=== PATIENT | female | born 1940 | race Caucasian/White ===

== ENCOUNTER → 2016-09-15 | Outpatient (CLI) | payer MEDICARE, OTHER ==
--- NOTE | 2016-09-16 16:25 | MAM ---
History: Well woman exam. Date of exam: 09/15/2016 Services provided: Bilateral full field digital screening mammography. CAD, the images were reviewed with R2 computer aided detection. FINDINGS: Glandular tissue is scattered glandular contour. No prior study is currently available for comparison. No dominant mass, architectural distortion or clustered microcalcification. IMPRESSION: Benign exam Recommendation: Routine annual mammography BIRAD CATEGORY: 2 BENIGN Electronically signed by: Anyi Barr MD 09/16/2016 4:24 PM CDT
== END | disposition home or self-care (01) ==
LOC: MAMMO 09:33
PROVIDERS: ATTEND Family Medicine
DX: Z12.31 Encounter for screening mammogram for malignant neoplasm of breast (principal)

== ENCOUNTER → 2016-09-20 | Outpatient (CLI) | payer MEDICARE, OTHER | END | disposition home or self-care (01) | LOC: GMAJ 14:29 | PROVIDERS: ATTEND Family Medicine | DX: E03.9 Hypothyroidism, unspecified (principal) ==

== ENCOUNTER → 2017-03-06 | Outpatient (CLI) | payer MEDICARE, OTHER | END | disposition home or self-care (01) | LOC: GMAJ 14:49 | PROVIDERS: ATTEND Family Medicine | DX: E03.9 Hypothyroidism, unspecified (principal) ==

== ENCOUNTER → 2017-09-04 | Outpatient (CLI) | payer OTHER | LOC: GMAJ 11:19 | PROVIDERS: ATTEND Family Medicine | DX: E03.9 Hypothyroidism, unspecified (principal) ==

== ENCOUNTER → 2018-01-12 | Outpatient (CLI) | payer OTHER | LOC: GMAJ 12:34 | PROVIDERS: ATTEND Family Medicine | DX: E03.9 Hypothyroidism, unspecified (principal) ==

== ENCOUNTER → 2018-02-14 | Outpatient (CLI) | payer OTHER | LOC: GMAJ 13:13 | PROVIDERS: ATTEND Family Medicine | DX: E03.9 Hypothyroidism, unspecified (principal) ==

== ENCOUNTER → 2018-05-23 | Outpatient (CLI) | payer OTHER | LOC: GMAJ 11:13 | PROVIDERS: ATTEND Family Medicine | DX: E03.9 Hypothyroidism, unspecified (principal) ==

== ENCOUNTER → 2018-05-24 | Outpatient (CLI) | payer OTHER ==
--- NOTE | 2018-05-24 17:34 | US ---
EXAM DESCRIPTION: Venous,Lower Extremity LT CLINICAL HISTORY: LOCALIZED EDEMA COMPARISON: None Available. TECHNIQUE: Left lower extremity venous duplex FINDINGS: Doppler evaluation of the left lower extremity deep veins was performed. Normal color flow is seen in the common femoral, superficial femoral, profunda femoral and greater saphenous veins. Normal flow is seen in the popliteal vein and veins below the knee in the calf. Normal venous compressibility and flow augmentation. IMPRESSION: Negative for evidence of deep venous thrombosis on left lower extremity venous Doppler sonogram. Electronically signed by: Abebe Nazario MD 05/24/2018 5:33 PM [employer]
== END ==
LOC: US 15:03
PROVIDERS: ATTEND Family Medicine
DX: R60.0 Localized edema (principal)

== ENCOUNTER 2018-10-11 15:14 | Observation (INO) | payer OTHER ==
[2018-10-12 09:54] VITALS: BP 157/67; TEMP 97.8
[2018-10-12 10:02] VITALS: O2SAT 94
== END 2018-10-12 10:40 | disposition home or self-care (01) ==
LOC: MS 15:14 → INTOOBSV 15:14
PROVIDERS: ADMIT Nurse Practitioner Family; ATTEND Nurse Practitioner
DX: L03.032 Cellulitis of left toe (principal); E11.65 Type 2 diabetes mellitus with hyperglycemia; E03.9 Hypothyroidism, unspecified; F17.210 Nicotine dependence, cigarettes, uncomplicated; I25.10 Atherosclerotic heart disease of native coronary artery without angina pectoris; M85.80 Other specified disorders of bone density and structure, unspecified site; I10 Essential (primary) hypertension; E78.2 Mixed hyperlipidemia; I25.2 Old myocardial infarction; Z79.4 Long term (current) use of insulin; Z79.82 Long term (current) use of aspirin; Z79.890 Hormone replacement therapy; Z79.899 Other long term (current) drug therapy; Z86.010 Personal history of colon polyps; Z95.5 Presence of coronary angioplasty implant and graft; Z86.73 Personal history of transient ischemic attack (TIA), and cerebral infarction without residual deficits

== ENCOUNTER → 2018-10-17 | Outpatient (CLI) | payer OTHER ==
--- NOTE | 2018-10-18 15:33 | MRI ---
Study: MRI of the Left Foot. Indication: Cellulitis of toe Technique: Multiplanar, multi sequence MRI of the left foot was obtained without intravenous contrast. Comparison: Radiographs October 04, 2018 Findings: Unfortunately, examination is moderate to severely motion degraded and essentially nondiagnostic. There is extensive cellulitis throughout the foot. There is questionable elevated STIR signal within the proximal metadiaphysis of the fifth proximal phalanx. This could indicate osteomyelitis but is nonspecific. 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 Impression: Moderate to severely motion degraded examination, essentially nondiagnostic. Repeat examination is recommended when the patient can tolerate. Extensive cellulitis throughout the foot with questionable elevated STIR signal within the proximal metadiaphysis of the fifth proximal phalanx. Conceivably this could reflect osteomyelitis but is nonspecific. Electronically signed by: Sean Sanchez MD 10/18/2018 3:31 PM CDT
== END ==
LOC: MRI 13:49
PROVIDERS: ATTEND Family Medicine
DX: L03.032 Cellulitis of left toe (principal)

== ENCOUNTER 2018-10-19 13:37 | Inpatient (IN) | payer OTHER ==
--- NOTE | 2018-10-19 13:39 | HP ---
SUPERVISING PHYSICIAN: Dilip Staples MD CHIEF COMPLAINT: Left foot pain. HISTORY OF PRESENT ILLNESS: This is a 73 year-old female patient who was seen by her primary care physician, Dr. Guadalupe, today. She was actually in this hospital last week for IV antibiotics due to this foot pain. She wanted to go to a wedding so she talked the hospitalist into releasing her so she could leave. Up through discharge, her foot was hurting so much that she was unable to go to the wedding and today saw her primary care physician. Her left fifth toe was black, her whole foot had 4+ edema. An MRI had been done the previous day and was nondiagnostic due to movement but other than the cellulitis, it was consistent with osteomyelitis. Dr. Guadalupe told her she would need to be put in the hospital for IV therapy due to osteomyelitis and we would get a better MRI once her pain was controlled. She was sent to the hospital as a direct admission. Her initial vital signs showed a temperature of 98.8, heart rate of 80, blood pressure 183/71, respiratory rate 20, 02 saturation 96% on room air. Lab was done. Electrolytes were within normal limits. Her blood sugar ran between 179 and 242. Her liver function tests were unremarkable. CBC showed a WBC of 7.8, hemoglobin 13.2 and hematocrit 39.1. There was no shift on her differential. Her urinalysis was unremarkable. Blood cultures were drawn and patient was placed on primary fluids. She also was started on vancomycin as well as Rocephin. PAST MEDICAL HISTORY: 1. Diabetes mellitus type 2. . 2. Hypothyroidism. 3. Coronary artery disease. 4. Hyperlipidemia. 5. Hypertension. 6. Myocardial infarction x1 in 2007. 7. Colonic polyps biopsy in 2009. 8. Osteopenia. PAST SURGICAL HISTORY: 1. Appendectomy. 2. Hysterectomy.. 3. Bladder suspension. 4. Bilateral cataract removal. 5. Hernia repair in 1994, inguinal. 6. Right total knee arthroplasty in 2015. 7. PTCA in 2007 with coronary stent placement. OUTPATIENT MEDICATIONS: As per the EMR and awaiting verification. ALLERGIES: NO KNOWN DRUG ALLERGIES. FAMILY HISTORY: Positive for diabetes and Alzheimer's disease. SOCIAL HISTORY: She lives in [place]. She has four children. She is a current smoker. She smokes one-half pack per day. She drinks alcohol on a social basis only and only drinks it very infrequently. She denies any illicit drug use. REVIEW OF SYSTEMS: Negative except for pain and swelling in that left lower leg. PHYSICAL EXAMINATION: VITAL SIGNS: Temperature is 98.4, heart rate 69, blood pressure 149/68, respiratory rate 16, 02 saturation 92% on room air. GENERAL: The patient is a 78 year-old female patient lying in her hospital bed. She is in no acute distress. HEENT: Normocephalic and atraumatic. Pupils are equal and reactive. Oropharynx is clear. NECK: Supple without mass. CHEST: Essentially clear to auscultation bilaterally. There is equal rise and fall of the chest with inspiration and expiration. CARDIOVASCULAR: Regular rate and rhythm. ABDOMEN: Soft, nondistended, non-tender. Bowel sounds positive. EXTREMITIES: Her left lower leg is elevated on a pillow. It has +3 edema, her fifth toe on that left foot is black. She does have +1 pedal pulse on the left side, +2 pedal pulse on the right side. There was no drainage or fluctuance noted. NEUROLOGIC: She is awake, alert, and oriented x3. Cranial nerves II through XII are grossly intact. SKIN: Warm and dry. Labs and films are as per the history of present illness. ASSESSMENT: 1. Cellulitis of the left fifth toe with concerns for osteomyelitis. MRI was nondiagnostic due to movement but test was consistent with osteomyelitis. 2. Coronary artery disease. 3. Diabetes mellitus type 2. 4. Hypothyroidism . 5. History of myocardial infarction. 6. Hyperlipidemia. PLAN: The patient has been admitted to the hospital. Her home medications will be resumed as soon as they are verified. I have ordered routine lab for in the morning. She has gotten some primary IV fluids and I have started her on vancomycin per pharmacy protocol as well as Rocephin. She will have a PPI for ulcer prophylaxis and Lovenox for DVT prophylaxis. We may need to do a repeat MRI at some point on that foot and will most likely need to touch base with Dr. Griffith, Infectious Disease physician in [place] next week. Most likely will need to do one week of IV antibiotic therapy and then she possibly could be a Swing Bed candidate. Will also need to get a PIC line if possible as this will probably have a 6-week antibiotic regimen. Otherwise, will monitor cultures and follow closely and treat as needed. [facility][id number] [facility]
[2018-10-19] MEDS: MORPHINE SULFATE INJ 10 MG/ML VIAL IV PRN ×2 (13:59→19:33)
[2018-10-19] MEDS ORDERED: ACETAMINOPHEN 325 MG TAB PO PRN (14:39)
[2018-10-19] MEDS ORDERED: SODIUM CHLORIDE 0.9% (FLUSH) 10 ML SYG IV PRN (14:39)
[2018-10-19] MEDS ORDERED: GLUCAGON INJ 1 MG VIAL SUBCU PRN (14:44)
[2018-10-19] MEDS ORDERED: DEXTROSE 50% 25 GM/50 ML SYG IV PRN (14:44)
[2018-10-19] MEDS ORDERED: cefTRIAXone SODIUM 1 GM VIAL ONE (14:48)
[2018-10-19] MEDS ORDERED: SODIUM CHL 0.9% 50ML MIN-BAG+ 50 ML IVPB ONE (14:49)
[2018-10-19] MEDS: cefTRIAXone SODIUM 1 GM in SODIUM CHL 0.9% 50ML MIN-BAG+ 50 ML IVPB SCH (14:52)
[2018-10-19] MEDS: IV SET AND CAP CHANGE INJ INJ SCH (14:52)
[2018-10-19] MEDS ORDERED: VANCOMYCIN PER PHARMACY INJ SCH (15:00)
[2018-10-19] MEDS ORDERED: VANCOMYCIN HCL INJ 1,000 MG, VANCOMYCIN HCL INJ 250 MG in SODIUM CHLORIDE 0.9% 250ML 25... IVPB ONE (16:00)
[2018-10-19] MEDS ORDERED: VANCOMYCIN HCL INJ 500 MG VIAL ONE (16:32)
[2018-10-19] MEDS ORDERED: VANCOMYCIN HCL INJ 1,000 MG VIAL IVPB ONE (16:33)
[2018-10-19] MEDS ORDERED: SODIUM CHLORIDE 0.9% 250ML 250 ML ONE (16:33)
[2018-10-19] MEDS: INSULIN LISPRO 100 UNITS/ML PEN SUBCU SCH ×2 (16:40→21:38)
[2018-10-19] MEDS ORDERED: PANTOPRAZOLE SODIUM TAB 40 MG PO ONE (19:43)
[2018-10-19] MEDS: ENOXAPARIN SODIUM 40 MG/0.4 ML SYG SUBCU SCH (20:40)
[2018-10-19] MEDS: SODIUM CHLORIDE 0.9% (FLUSH) 10 ML SYG IV SCH (20:41)
[2018-10-20] MEDS: PANTOPRAZOLE SODIUM TAB 40 MG PO SCH (06:20)
[2018-10-20] MEDS ORDERED: PANTOPRAZOLE SODIUM IV 40 MG VIAL IV SCH (06:30)
[2018-10-20] MEDS: INSULIN LISPRO 100 UNITS/ML PEN SUBCU SCH ×4 (07:36→21:31)
[2018-10-20] MEDS: SODIUM CHLORIDE 0.9% (FLUSH) 10 ML SYG IV SCH ×2 (09:57→21:32)
[2018-10-20] MEDS: MORPHINE SULFATE INJ 10 MG/ML VIAL IV PRN ×4 (10:39→23:21)
[2018-10-20] MEDS ORDERED: SODIUM CHL 0.9% 50ML MIN-BAG+ 50 ML IVPB ONE (15:04)
[2018-10-20] MEDS ORDERED: cefTRIAXone SODIUM 1 GM VIAL ONE (15:04)
[2018-10-20] MEDS: cefTRIAXone SODIUM 1 GM in SODIUM CHL 0.9% 50ML MIN-BAG+ 50 ML IVPB SCH (15:09)
[2018-10-20] MEDS ORDERED: SODIUM CHLORIDE 0.9% 250ML 250 ML ONE ×2 (16:32→16:35)
[2018-10-20] MEDS ORDERED: VANCOMYCIN HCL INJ 1,000 MG VIAL IVPB ONE (16:32)
[2018-10-20] MEDS: VANCOMYCIN HCL INJ 1,000 MG in SODIUM CHLORIDE 0.9% 250ML 250 ML IVPB SCH (16:34)
--- NOTE | 2018-10-20 18:39 | PN ---
DATE: 10/20/18 SUPERVISING PHYSICIAN: Dilip Staples M.D. SUBJECTIVE: The patient is sitting in bed. Her daughter is at the bedside. No complaints of nausea, vomiting, diarrhea or chest pain. The patient said she felt she did well with her ambulation and the walker when Physical Therapy was in her room. She also feels that her pain is fairly well controlled. OBJECTIVE: VITAL SIGNS: Temperature 98.6, heart rate 64, blood pressure 172/69, respiratory rate 20, O2 sat 92%. RESPIRATORY: Essentially clear to auscultation bilaterally. CARDIAC: Regular rate and rhythm. GASTROINTESTINAL: Abdomen is soft, nondistended, non-tender. Bowel sounds ear positive. EXTREMITIES: Her left fifth toe is black. There is no drainage or edema. Her left foot has +1 to +2 pedal edema. Her pulse is palpable at +1. Right pedal pulse is palpable at +2. NEUROLOGIC: She is awake, alert and oriented times three. LABORATORY: WBCs are 6.4, hemoglobin 12.6, hematocrit 38.3. Electrolytes are basically within normal limits. Blood sugars have run between 105 and 242. Preliminary blood cultures show no growth after 24 hours. All other labs and films have been reviewed via the EMR. ASSESSMENT: 1. Cellulitis of the left fifth toe with concerns for osteomyelitis. MRI was nondiagnostic due to movement but test was consistent with osteomyelitis. 2. Coronary artery disease. 3. Diabetes mellitus type 2. 4. Hypothyroidism . 5. History of myocardial infarction. 6. Hyperlipidemia. PLAN: We will continue present supportive care. Nursing staff is having a difficult time verifying her home medications, but they will be restarted as soon as they are verified. I will hold on her lab for in the morning. Will continue with her present antibiotics. Most likely will need to talk to Dr. Griffith on Monday to find the recommended plan of care and antibiotic coverage as well as length of treatment. She will continue to work with Physical Therapy. Anticipate 1 week in hospital getting a PICC line on Monday and maybe another week of Swing Bed, but again will see what Dr. Griffith recommends. Will continue to monitor closely and follow as needed. #[id number] [facility]
[2018-10-20] MEDS ORDERED: LEVOTHYROXINE SODIUM 0.075 MG TAB ONE (20:37)
[2018-10-20] MEDS ORDERED: LEVOTHYROXINE SODIUM 0.1 MG TAB ONE (20:37)
[2018-10-20] MEDS ORDERED: LISINOPRIL 10 MG TAB PO ONE (21:00)
[2018-10-20] MEDS ORDERED: NON-FORMULARY MEDICATION 1 EA MIS (Rosuvastatin Calcium [Crestor] 20 MG) PO SCH (21:00)
[2018-10-20] MEDS: ENOXAPARIN SODIUM 40 MG/0.4 ML SYG SUBCU SCH (21:31)
[2018-10-21] MEDS: PANTOPRAZOLE SODIUM TAB 40 MG PO SCH (06:15)
[2018-10-21] MEDS ORDERED: LEVOTHYROXINE SODIUM 0.175 MG PO SCH (06:30)
[2018-10-21] MEDS: INSULIN LISPRO 100 UNITS/ML PEN SUBCU SCH ×4 (08:07→21:38)
[2018-10-21] MEDS: METOPROLOL SUCCINATE XL 25 MG TAB PO SCH (09:20)
[2018-10-21] MEDS: ASPIRIN (CHEWABLE) 81 MG TAB PO SCH (09:20)
[2018-10-21] MEDS: SODIUM CHLORIDE 0.9% (FLUSH) 10 ML SYG IV SCH ×2 (09:21→21:39)
[2018-10-21] MEDS: MORPHINE SULFATE INJ 10 MG/ML VIAL IV PRN ×3 (09:21→19:17)
[2018-10-21] MEDS: NICOTINE PATCH 14 MG TD SCH (10:25)
[2018-10-21] MEDS ORDERED: cefTRIAXone SODIUM 1 GM VIAL ONE (14:48)
[2018-10-21] MEDS ORDERED: SODIUM CHL 0.9% 50ML MIN-BAG+ 50 ML IVPB ONE (14:48)
[2018-10-21] MEDS: cefTRIAXone SODIUM 1 GM in SODIUM CHL 0.9% 50ML MIN-BAG+ 50 ML IVPB SCH (14:52)
[2018-10-21] MEDS ORDERED: VANCOMYCIN HCL INJ 1,000 MG VIAL IVPB ONE (15:39)
[2018-10-21] MEDS ORDERED: SODIUM CHLORIDE 0.9% 250ML 250 ML ONE (15:39)
[2018-10-21] MEDS: VANCOMYCIN HCL INJ 1,000 MG in SODIUM CHLORIDE 0.9% 250ML 250 ML IVPB SCH (15:45)
[2018-10-21] MEDS ORDERED: LEVOTHYROXINE SODIUM 0.075 MG TAB ONE (20:45)
[2018-10-21] MEDS ORDERED: LEVOTHYROXINE SODIUM 0.1 MG TAB ONE (20:46)
[2018-10-21] MEDS: ATORVASTATIN 20 MG TAB PO SCH (21:38)
[2018-10-21] MEDS: ENOXAPARIN SODIUM 40 MG/0.4 ML SYG SUBCU SCH (21:38)
--- NOTE | 2018-10-21 22:21 | PN ---
DATE: 10/21/18 SUPERVISING PHYSICIAN: Dilip Staples M.D. SUBJECTIVE: The patient is sitting up in her bed. She has no complaints overnight. Her son is at the bedside. We again discussed her antibiotic regimen over the next week or so and that she would be getting a PICC this week if possible. Her pain is fairly well control in that left foot. OBJECTIVE: VITAL SIGNS: Temperature 98.4, heart rate 66, blood pressure 154/64, respiratory rate 15, O2 sat 97% on room air. RESPIRATORY: Essentially clear to auscultation bilaterally. CARDIAC: Regular rate and rhythm. GASTROINTESTINAL: Abdomen is soft, nondistended, non-tender. Bowel sounds are positive. EXTREMITIES: Her left fifth toe is only ecchymotic on the plantar portion of that toe as well as the very tip. She also has no edema to her feet. Bilateral pedal pulses are +2. NEUROLOGIC: She is awake, alert and oriented times three. LABORATORY: Blood sugars have run between 105 and 169. Preliminary blood cultures show no growth after 48 hours. All other labs and films have been reviewed via the EMR. ASSESSMENT: 1. Cellulitis of the left fifth toe with concerns for osteomyelitis. MRI was nondiagnostic due to movement but test was consistent with osteomyelitis. 2. Coronary artery disease. 3. Diabetes mellitus type 2. 4. Hypothyroidism . 5. History of myocardial infarction. 6. Hyperlipidemia. PLAN: We will continue present supportive care. Her lab was stable so I will not repeat any at this time. Will continue her antibiotics as ordered. We may need to touch base with Dr. Griffith this next week about her antibiotic coverage as well as her length of stay. Will need to get a PICC line this week. Dr. Guadalupe, her PCP, has recommended that she stay 1 week in Acute Care and 1 week in Swing Bed, and followup with Dr. Griffith. We also need to find out if we need to repeat the MRI since it was nondiagnostic due to movement and if we should repeat it, when. She has occasionally gotten agitated and I have given her a small dose of Ativan as needed. Will continue to monitor closely and follow as needed. #[id number] [facility]
[2018-10-22] MEDS: LEVOTHYROXINE SODIUM 0.1 MG, LEVOTHYROXINE SODIUM 0.075 MG PO SCH ×2 (06:10)
[2018-10-22] MEDS: PANTOPRAZOLE SODIUM TAB 40 MG PO SCH (06:10)
[2018-10-22] MEDS: INSULIN LISPRO 100 UNITS/ML PEN SUBCU SCH ×4 (07:20→21:19)
[2018-10-22] MEDS: ASPIRIN (CHEWABLE) 81 MG TAB PO SCH (08:10)
[2018-10-22] MEDS: SODIUM CHLORIDE 0.9% (FLUSH) 10 ML SYG IV SCH ×2 (08:10→21:22)
[2018-10-22] MEDS: METOPROLOL SUCCINATE XL 25 MG TAB PO SCH (08:10)
[2018-10-22] MEDS: NICOTINE PATCH 14 MG TD SCH (08:11)
[2018-10-22] MEDS: MORPHINE SULFATE INJ 10 MG/ML VIAL IV PRN (08:20)
[2018-10-22] MEDS: DOCUSATE SODIUM 100 MG CAP PO SCH ×2 (11:35→21:18)
--- NOTE | 2018-10-22 12:03 | CONS ---
DATE OF CONSULTATION: 10/22/18 HISTORY OF PRESENT ILLNESS: The patient is a 73-year-old female who was admitted with left foot pain, swelling and erythema along with a small ulceration in the area of necrosis of the left fifth toe. An MRI performed several days ago was of poor quality due to patient motion, but believed to be consistent with osteomyelitis. I have been asked to make recommendations for further treatment. She is currently afebrile with a normal white count on IV antibiotic therapy. PAST MEDICAL HISTORY: 1. Diabetes. 2. Hypothyroidism. 3. Coronary artery disease. 4. Hyperlipidemia. 5. Hypertension. 6. Myocardial infarction. 7. Colonic polyps. 8. Osteopenia. 9. Chronic tobacco abuse. PAST SURGICAL HISTORY: 1. Appendectomy. 2. Hysterectomy. 3. Bladder suspension. 4. Cataract. 5. Inguinal hernia repair. 6. Total knee. 7. PTCA with stent. MEDICATIONS: As noted on the electronic record. ALLERGIES: NO KNOWN DRUG ALLERGIES. FAMILY HISTORY: Positive for diabetes and Alzheimer's. SOCIAL HISTORY: She lives in [place] with one of her sons. She has smoked since she was a teenager and continues to smoke. She drinks on minimal occasional basis. REVIEW OF SYSTEMS: Unremarkable other than symptoms associated with her left leg. PHYSICAL EXAMINATION: GENERAL: The patient is awake, alert, cooperative, in no acute distress. VITAL SIGNS: The patient is currently afebrile, normotensive. HEENT: Sclerae nonicteric. Mucous membranes moist. NECK: Without adenopathy. BACK: Without CVA tenderness. CHEST: Equal breath sounds bilaterally. HEART: Regular rhythm. ABDOMEN: Benign. EXTREMITIES: The left lower extremity is elevated and has minimal edema. The left fifth toe shows an area of necrosis. Pedal pulses are not palpated. There is moderate tenderness of the foot, toe and calf on the left. LABORATORY: White count 6.4 two days ago and a normal differential. Hemoglobin 12.6. Chemistries were unremarkable with creatinine 0.99. Blood sugars have been running between 170 and 120 for the last 36 hours. C-reactive protein was 0.7. ASSESSMENT: 1. Diabetes. 2. Cellulitis with possible osteomyelitis of the left foot and left fifth toe. 3. More than likely peripheral vascular occlusive disease. 4. Chronic tobacco abuse. 5. History of coronary artery disease. PLAN: If in fact the patient has not had arterial Doppler studies, would order those first and allow the patient to make a decision about whether she wants long-term antibiotic therapy or aggressive surgical management at which time a probable repeat MRI would be required to delineate the extent of the osteomyelitis. Until that time, we will continue Rocephin and vancomycin as ordered along with elevation of the foot. #[id number] [facility]
--- NOTE | 2018-10-22 13:10 | PN ---
SUPERVISING PHYSICIAN: Spring Cazares MD DATE: 10/22/18 SUBJECTIVE: The patient states she does not currently have any discomfort in her foot after receiving some pain medications this morning. Prior to that, she was having some pain, but the swelling is down quite a bit from what it was. OBJECTIVE: VITAL SIGNS: Blood pressure 173/71. Heart rate 52. Respiratory rate 16. Temperature 99.2. Oxygen saturation 95%. GENERAL: Ms. Ovalles is a 78-year-old female in no active distress currently. NEUROLOGIC: Alert and oriented. LUNGS: Clear to auscultation bilaterally. CARDIOVASCULAR: Regular rate and rhythm. Normal S1, S2. ABDOMEN: Soft. Positive bowel sounds. EXTREMITIES: The left lower extremity is showing no acute changes from assessment yesterday which was necrotic portion on the plantar aspect of the left fifth toe. Erythema and edema is improved of the whole foot area. Pulses 2+. LABORATORY: White count 6.4, hemoglobin 12.6, hematocrit 38.3, platelet count 175. ASSESSMENT: 1. Cellulitis of the left foot with concerns for osteomyelitis of the left fifth toe. 2. Coronary artery disease. 3. Diabetes mellitus, type 2. 4. Hypothyroidism. 5. History of myocardial infarction. 6. Hyperlipidemia. PLAN: We will continue antibiotic therapy. I am adding some Colace to her medication regimen due to the fact that she is taking narcotic pain medications. She seems to be clinically improving although not quite where she needs to be. We are going to continue her IV antibiotics for a week. She will probably need a followup with Dr. Griffith at some point. Additionally, Marycruz Ignacio, the nurse practitioner from yesterday, has consulted Dr. Schuler regarding the patient's possible need for further intervention. #[id number] [facility]
[2018-10-22] MEDS: HYDROcodone 5MG/APAP 325MG 1 EA TAB PO PRN (14:54)
--- NOTE | 2018-10-22 15:36 | US ---
Exam: Bilateral lower extremity arterial Doppler sonogram CLINICAL HISTORY: Osteomyelitis, peripheral vascular disease of the lower extremities TECHNIQUE: Doppler sonographic evaluation of the bilateral lower extremities was performed. FINDINGS: Right Submitted sonographic images reveal extensive arteriosclerotic plaque in the right lower extremity arteries with high velocity flow in the common femoral artery consistent with stenosis of moderate degree. Lack of flow in the midportion of the superficial femoral arteries consistent with occlusion, most likely chronic since there is reconstituted flow distally. Correlate with conventional angiographic findings if indicated. Monophasic flow suggests proximal disease in the aorta or iliac arteries. The following peak systolic flow flow velocity measurements were obtained: Common femoral artery velocity equals 168 centimeters per second , monophasic. Superficial femoral artery velocity equals 9.3 cm/s proximally (monophasic) with no flow seen in the mid superficial femoral artery consistent with occlusion. Collateral vessels must reconstitute since there is flow in the distal SFA 15.5 cm per second , monophasic. Popliteal artery velocity equals 57 centimeters per second , monophasic. Peroneal artery velocity equals 32 centimeters per second , monophasic. Posterior tibial artery velocity equals 36 centimeters per second , monophasic. Dorsalis pedis artery flow is not seen consistent with occlusion. Left Submitted sonographic images reveal extensive arteriosclerotic plaque in the left lower extremity arteries. High velocity flow in the left common femoral artery consistent with stenosis. Monophasic flow throughout the left lower extremity arteries. The following peak systolic flow flow velocity measurements were obtained: Common femoral artery velocity equals 134 centimeters per second , monophasic. Superficial femoral artery velocity equals 25-40 centimeters per second , monophasic. Popliteal artery velocity equals 75 centimeters per second , monophasic. Peroneal artery velocity equals 38 centimeters per second , monophasic. Posterior tibial artery velocity equals 32 centimeters per second , monophasic. Dorsalis pedis artery velocity equals nine centimeters per second , monophasic. IMPRESSION: No flow is seen in the right mid superficial femoral artery or in the dorsalis pedis artery. See above. Monophasic flow throughout the arteries of both lower extremities. Electronically signed by: Abebe Nazario MD 10/22/2018 3:33 PM CDT
[2018-10-22] MEDS ORDERED: diazePAM 5 MG TAB PO ONE (16:22)
[2018-10-22] MEDS ORDERED: VANCOMYCIN HCL INJ 1,000 MG, VANCOMYCIN HCL INJ 250 MG in SODIUM CHLORIDE 0.9% 250ML 25... IVPB SCH (18:00)
[2018-10-22] MEDS ORDERED: cefTRIAXone SODIUM 1 GM VIAL ONE (18:28)
[2018-10-22] MEDS ORDERED: SODIUM CHL 0.9% 50ML MIN-BAG+ 50 ML IVPB ONE (18:28)
[2018-10-22] MEDS: cefTRIAXone SODIUM 1 GM in SODIUM CHL 0.9% 50ML MIN-BAG+ 50 ML IVPB SCH (18:33)
--- NOTE | 2018-10-22 18:37 | RAD ---
EXAM DESCRIPTION: Chest,1 View CLINICAL HISTORY: PICC LINE PLACEMENT COMPARISON: 05 May 2008 TECHNIQUE: AP portable chest FINDINGS: The lungs are clear. There is no infiltrate or effusion. The heart is normal size. A PICC line is seen in place on the patient's right with the distal tip in the region of the superior vena cava. IMPRESSION: A PICC line is seen in place on the right with the distal tip in the region of the superior vena cava. Electronically signed by: Tom Camejo MD 10/22/2018 6:35 PM CDT
[2018-10-22] MEDS ORDERED: VANCOMYCIN HCL INJ 500 MG VIAL ONE (20:00)
[2018-10-22] MEDS ORDERED: LEVOTHYROXINE SODIUM 0.075 MG TAB ONE (20:01)
[2018-10-22] MEDS ORDERED: SODIUM CHLORIDE 0.9% 250ML 250 ML ONE (20:01)
[2018-10-22] MEDS ORDERED: VANCOMYCIN HCL INJ 1,000 MG VIAL IVPB ONE (20:02)
[2018-10-22] MEDS ORDERED: LEVOTHYROXINE SODIUM 0.1 MG TAB ONE (20:02)
[2018-10-22] MEDS: IV SET AND CAP CHANGE INJ INJ SCH (21:17)
[2018-10-22] MEDS: ENOXAPARIN SODIUM 40 MG/0.4 ML SYG SUBCU SCH (21:18)
[2018-10-22] MEDS: ATORVASTATIN 20 MG TAB PO SCH (21:18)
[2018-10-22] MEDS: VANCOMYCIN HCL INJ 1,000 MG in SODIUM CHLORIDE 0.9% 250ML 250 ML IVPB SCH (21:32)
[2018-10-23] MEDS: LEVOTHYROXINE SODIUM 0.1 MG, LEVOTHYROXINE SODIUM 0.075 MG PO SCH ×2 (06:17)
[2018-10-23] MEDS: PANTOPRAZOLE SODIUM TAB 40 MG PO SCH (06:18)
[2018-10-23] MEDS: INSULIN LISPRO 100 UNITS/ML PEN SUBCU SCH ×4 (07:11→20:52)
[2018-10-23] MEDS: HYDROcodone 5MG/APAP 325MG 1 EA TAB PO PRN ×2 (07:11→16:00)
[2018-10-23] MEDS: ASPIRIN (CHEWABLE) 81 MG TAB PO SCH (08:59)
[2018-10-23] MEDS: DOCUSATE SODIUM 100 MG CAP PO SCH ×2 (08:59→20:56)
[2018-10-23] MEDS: METOPROLOL SUCCINATE XL 25 MG TAB PO SCH (09:00)
[2018-10-23] MEDS ORDERED: SODIUM CHLORIDE 0.9% (FLUSH) 10 ML SYG IV SCH (09:00)
[2018-10-23] MEDS: NICOTINE PATCH 14 MG TD SCH (09:00)
[2018-10-23] MEDS: SODIUM CHLORIDE 0.9% (FLUSH) 10 ML SYG IV SCH ×2 (09:00→20:57)
--- NOTE | 2018-10-23 09:28 | PN ---
SUPERVISING PHYSICIAN: Spring Cazares MD DATE: 10/23/18 SUBJECTIVE: The patient states there is not a lot of change in her left lower extremity. Still a little bit tender to touch, but better than it was on admission. OBJECTIVE: VITAL SIGNS: Blood pressure 170/70. Heart rate 52. Respiratory rate 14. Temperature 98.4. Oxygen saturation 96%. GENERAL: Ms. Ovalles is a 78-year-old female in no distress. NEUROLOGIC: Alert and oriented. LUNGS: Clear to auscultation bilaterally. CARDIOVASCULAR: Regular rate and rhythm. Normal S1, S2. ABDOMEN: Soft. Positive bowel sounds. EXTREMITIES: Lower extremities with no significant edema. The left lower extremity is still with two patches of erythema that seem to be improving, but there is a little bit of tenderness to the touch. Plantar aspect of the left fifth toe still with an area of eschar. RADIOLOGY: She did have a chest x-ray after PICC line placement which showed appropriate placement of the right PICC line. She had an arterial sonogram yesterday which showed no flow in the right mid superficial femoral artery or in the dorsalis pedis artery and monophasic flow throughout the arteries of both lower extremities. ASSESSMENT: 1. Cellulitis of the left foot with concerns for osteomyelitis of the left fifth toe. 2. Coronary artery disease. 3. Hypertension. 4. Diabetes mellitus, type 2. 5. Hypothyroidism. 6. Hyperlipidemia. PLAN: Once again, we will continue the current antibiotic regimen. I appreciate Dr. Schuler's consultation. We will followup with labs tomorrow as well. #[id number] [facility]
[2018-10-23] MEDS ORDERED: SODIUM CHLORIDE 0.9% (FLUSH) 10 ML SYG IV PRN (09:30)
[2018-10-23] MEDS: MORPHINE SULFATE INJ 10 MG/ML VIAL IV PRN ×2 (10:13→19:30)
[2018-10-23] MEDS ORDERED: cefTRIAXone SODIUM 1 GM VIAL ONE (14:58)
[2018-10-23] MEDS ORDERED: SODIUM CHL 0.9% 50ML MIN-BAG+ 50 ML IVPB ONE (14:58)
[2018-10-23] MEDS: cefTRIAXone SODIUM 1 GM in SODIUM CHL 0.9% 50ML MIN-BAG+ 50 ML IVPB SCH (15:01)
[2018-10-23] MEDS ORDERED: VANCOMYCIN HCL INJ 500 MG VIAL ONE (19:54)
[2018-10-23] MEDS ORDERED: SODIUM CHLORIDE 0.9% 250ML 250 ML ONE (19:55)
[2018-10-23] MEDS ORDERED: VANCOMYCIN HCL INJ 1,000 MG VIAL IVPB ONE (19:56)
[2018-10-23] MEDS ORDERED: VANCOMYCIN HCL INJ 1,000 MG, VANCOMYCIN HCL INJ 250 MG in SODIUM CHLORIDE 0.9% 250ML 25... IVPB SCH (20:00)
[2018-10-23] MEDS: ATORVASTATIN 20 MG TAB PO SCH (20:56)
[2018-10-23] MEDS: ENOXAPARIN SODIUM 40 MG/0.4 ML SYG SUBCU SCH (20:58)
[2018-10-24] MEDS ORDERED: BENZOCAINE-MENTH LOZ (CEPACOL) 1 EA LOZ MT PRN (05:14)
[2018-10-24] MEDS ORDERED: LEVOTHYROXINE SODIUM 0.075 MG TAB ONE (05:17)
[2018-10-24] MEDS ORDERED: LEVOTHYROXINE SODIUM 0.1 MG TAB ONE (05:18)
[2018-10-24] MEDS: HYDROcodone 5MG/APAP 325MG 1 EA TAB PO PRN ×2 (05:53→09:59)
[2018-10-24] MEDS: LEVOTHYROXINE SODIUM 0.1 MG, LEVOTHYROXINE SODIUM 0.075 MG PO SCH ×2 (06:24)
[2018-10-24] MEDS: PANTOPRAZOLE SODIUM TAB 40 MG PO SCH (06:24)
[2018-10-24] MEDS: INSULIN LISPRO 100 UNITS/ML PEN SUBCU SCH ×2 (07:31→11:32)
[2018-10-24] MEDS: DOCUSATE SODIUM 100 MG CAP PO SCH (09:59)
[2018-10-24] MEDS: NICOTINE PATCH 14 MG TD SCH ×2 (10:00→10:15)
[2018-10-24] MEDS: SODIUM CHLORIDE 0.9% (FLUSH) 10 ML SYG IV SCH (10:00)
[2018-10-24] MEDS: ASPIRIN (CHEWABLE) 81 MG TAB PO SCH (10:00)
[2018-10-24] MEDS: METOPROLOL SUCCINATE XL 25 MG TAB PO SCH ×2 (10:00→10:09)
[2018-10-24] MEDS ORDERED: MAGNESIUM HYDROXIDE 30 ML UD PO SCH (10:00)
[2018-10-24] MEDS ORDERED: POLYETHYLENE GLYCOL 3350 17 GM PCKT PO SCH (10:00)
[2018-10-24 10:29] VITALS: BP 147/66; TEMP 97.7; O2SAT 96
--- NOTE | 2018-10-24 11:36 | DS ---
SUPERVISING PHYSICIAN: Spring Cazares MD ADMISSION DIAGNOSIS: 1. Cellulitis of left lower extremity, specifically left fifth toe with concerns for osteomyelitis. 2. Coronary artery disease. 3. Diabetes mellitus, type 2. 4. Hypothyroidism. 5. History of myocardial infarction. 6. Hyperlipidemia. DISCHARGE DIAGNOSIS: 1. Cellulitis of left lower extremity, specifically left fifth toe with concerns for osteomyelitis. 2. Coronary artery disease. 3. Diabetes mellitus, type 2. 4. Hypothyroidism. 5. History of myocardial infarction. 6. Hyperlipidemia. HOSPITAL COURSE: This is a 73-year-old female who was seen on the day of admission by her primary care physician, Dr. Guadalupe. The previous week, she was in the hospital for left lower extremity cellulitis and had improvement with IV antibiotics. She wanted to go home and go to a wedding, so she was able to be discharged on p.o. antibiotics. Over the two days after discharge, however, her cellulitis worsened and she was referred for admission for recurrent cellulitis. She did have an MRI which was suboptimal due to movement, but the findings were consistent with osteomyelitis. Therefore, she was referred for another admission for the cellulitis as well as osteomyelitis of the left fifth toe. Her white count was normal upon admission. Throughout the five days she was here, her cellulitis improved quite a bit. The swelling also improved. However, she is still having some difficulty with pain. Given the fact that she has osteomyelitis, she has been referred for Swing Bed for continued IV antibiotics. She was approved for antibiotic therapy under Swing Bed with her insurance today, so she will be transferred to Swing Bed status. Her diet will be unchanged. All medications will remain except she will be taking p.o. pain medications. We will continue the IV antibiotics with Rocephin and vancomycin. Dr. Schuler was consulted during the admission as well and requested an arterial Doppler study. This did indicate reduced flow and his recommendation was cardiology evaluation for potential peripheral intervention at some point. However, she will first need to complete her antibiotic regimen and then do that as an outpatient. I spoke with Dr. Guadalupe about this as well. #[id number] [facility]
== END 2018-10-24 12:05 | disposition swing bed (61) | DRG 638 ==
LOC: MS 13:37
PROVIDERS: ADMIT Nurse Practitioner Acute Care; ATTEND Nurse Practitioner
PROC: 02HV33Z Insertion of Infusion Device into Superior Vena Cava, Percutaneous Approach (ICD-10-PCS; principal; 2018-10-22)
DX: E11.69 Type 2 diabetes mellitus with other specified complication (principal); L03.116 Cellulitis of left lower limb; M86.8X7 Other osteomyelitis, ankle and foot; E11.621 Type 2 diabetes mellitus with foot ulcer; L97.529 Non-pressure chronic ulcer of other part of left foot with unspecified severity; E11.51 Type 2 diabetes mellitus with diabetic peripheral angiopathy without gangrene; E03.9 Hypothyroidism, unspecified; I25.10 Atherosclerotic heart disease of native coronary artery without angina pectoris; E78.5 Hyperlipidemia, unspecified; I10 Essential (primary) hypertension; I25.2 Old myocardial infarction; M85.80 Other specified disorders of bone density and structure, unspecified site; F17.210 Nicotine dependence, cigarettes, uncomplicated; Z96.651 Presence of right artificial knee joint; Z95.5 Presence of coronary angioplasty implant and graft

== ENCOUNTER 2018-10-24 12:08 | Inpatient (IN) | payer OTHER ==
--- NOTE | 2018-10-24 12:15 | HP ---
SUPERVISING PHYSICIAN: Pete Cazares M.D. CHIEF COMPLAINT: Cellulitis. HISTORY OF PRESENT ILLNESS: This is a 73 year-old female who has recurrent left lower extremity cellulitis with what was found to be osteomyelitis via MRI. She was admitted to the hospital from 10/19 through 10/24 for IV antibiotics. Due to the extended need for IV antibiotics, she was placed in Swing Bed status for continued IV antibiotics. She is getting Rocephin and vancomycin. This will be continued throughout the duration of the Swing Bed visit. While her edema has gotten better she still has a couple of patches of cellulitis as well as the pain to the left fifth toe. Last admission Dr. Schuler was consulted to evaluate the patient as well. PAST MEDICAL HISTORY: 1. Diabetes mellitus type 2. 2. Hypothyroidism. 3. Coronary artery disease. 4. Hyperlipidemia. 5. Hypertension. 6. Myocardial infarction. 7. Colonic polyps with biopsy in 2009. 8. Osteopenia. PAST SURGICAL HISTORY: 1. Appendectomy. 2. Hysterectomy. 3. Bladder suspension. 4. Bilateral cataract removal. 5. Inguinal hernia repair in 1994. 6. Right total knee arthroplasty in 2015. 7. PTCA with stent in 2007. CURRENT MEDICATIONS: Please see medication reconciliation record in the computer. ALLERGIES: NO KNOWN DRUG ALLERGIES. FAMILY HISTORY: Diabetes and Alzheimer's. SOCIAL HISTORY: The patient smokes 1/2 pack per day and has done so for multiple years. Alcohol on a social basis and frequently. No illicit drug use. REVIEW OF SYSTEMS: Left lower extremity pain in relation to the cellulitis. All other system reviews are negative. PHYSICAL EXAMINATION: VITAL SIGNS: Blood pressure 146/78, heart rate 60, respiratory rate 16, temperature 98.5, oxygen skin and subcutaneous tissue 96%. GENERAL: Ms. Ovalles is a 78 year-old female who is in no active distress currently. CHEST: Lungs are clear to auscultation bilaterally. CARDIOVASCULAR: Regular rate and rhythm. Normal S1 and S2. ABDOMEN: Soft. Positive bowel sounds. EXTREMITIES: Lower extremities with no edema on the right. Left lower extremity with no edema. Two small patches of erythema and the left fifth toe with plantar aspect eschar tissue. NEUROLOGIC: The patient is alert and oriented. ASSESSMENT: 1. Recurrent cellulitis of the left lower extremity with left fifth toe osteomyelitis. 2. Coronary artery disease. 3. Diabetes mellitus type 2. 4. Hypothyroidism. 5. History of myocardial infarction. 6. Hyperlipidemia. PLAN: The patient will receive Rocephin and vancomycin dosed per Pharmacy. We will continue the IV antibiotics as scheduled for now. DVT and GI ulcer prophylaxis has also been ordered while she is in this setting. The patient is able to get up and down and ambulate, although under discomfort. She will do so with nurse assistance. [facility][id number] [facility]
[2018-10-24] MEDS ORDERED: SODIUM CHLORIDE 0.9% (FLUSH) 10 ML SYG IV PRN (12:56)
[2018-10-24] MEDS ORDERED: NITROGLYCERIN 0.4 MG 25 EA TAB SL SCH (13:00)
[2018-10-24] MEDS ORDERED: GLUCAGON INJ 1 MG VIAL SUBCU PRN (13:02)
[2018-10-24] MEDS ORDERED: DEXTROSE 50% 25 GM/50 ML SYG IV PRN (13:02)
[2018-10-24] MEDS ORDERED: ENOXAPARIN SODIUM 30 MG/0.3 ML SYG SUBCU ONE (13:22)
[2018-10-24] MEDS: IV SET AND CAP CHANGE INJ INJ SCH (13:26)
[2018-10-24] MEDS: ENOXAPARIN SODIUM 40 MG/0.4 ML SYG SUBCU SCH (13:33)
[2018-10-24] MEDS ORDERED: cefTRIAXone SODIUM 1 GM VIAL ONE (15:10)
[2018-10-24] MEDS ORDERED: SODIUM CHL 0.9% 50ML MIN-BAG+ 50 ML IVPB ONE (15:10)
[2018-10-24] MEDS: cefTRIAXone SODIUM 1 GM in SODIUM CHL 0.9% 50ML MIN-BAG+ 50 ML IVPB SCH (15:14)
[2018-10-24] MEDS ORDERED: VANCOMYCIN PER PHARMACY INJ SCH (15:30)
[2018-10-24] MEDS: INSULIN LISPRO 100 UNITS/ML PEN SUBCU SCH ×2 (16:36→21:02)
[2018-10-24] MEDS ORDERED: VANCOMYCIN HCL INJ 500 MG VIAL ONE (20:21)
[2018-10-24] MEDS ORDERED: SODIUM CHLORIDE 0.9% 250ML 250 ML ONE (20:21)
[2018-10-24] MEDS ORDERED: VANCOMYCIN HCL INJ 1,000 MG VIAL IVPB ONE (20:22)
[2018-10-24] MEDS ORDERED: PANTOPRAZOLE SODIUM TAB 40 MG PO ONE (20:22)
[2018-10-24] MEDS: VANCOMYCIN HCL INJ 1,000 MG, VANCOMYCIN HCL INJ 250 MG in SODIUM CHLORIDE 0.9% 250ML 25... IVPB SCH (20:30)
[2018-10-24] MEDS: INSULIN DETEMIR 100 UNITS/ML PEN SUBCU SCH (20:59)
[2018-10-24] MEDS ORDERED: ENOXAPARIN SODIUM 40 MG/0.4 ML SYG SUBCU SCH (21:00)
[2018-10-24] MEDS: traMADol HCL 50 MG TAB PO SCH (21:04)
[2018-10-24] MEDS: ATORVASTATIN 20 MG TAB PO SCH (21:04)
[2018-10-24] MEDS: hydroCHLOROthiazide 12.5 MG CAP PO SCH (21:05)
[2018-10-24] MEDS: LISINOPRIL 10 MG TAB PO SCH (21:05)
[2018-10-25] MEDS: PANTOPRAZOLE SODIUM TAB 40 MG PO SCH (06:24)
[2018-10-25] MEDS: HYDROcodone 5MG/APAP 325MG 1 EA TAB PO PRN ×2 (07:20→15:36)
[2018-10-25] MEDS: INSULIN LISPRO 100 UNITS/ML PEN SUBCU SCH ×4 (07:28→21:02)
[2018-10-25] MEDS: LEVOTHYROXINE SODIUM 0.075 MG TAB PO SCH (08:48)
[2018-10-25] MEDS: hydroCHLOROthiazide 12.5 MG CAP PO SCH ×2 (08:48→20:50)
[2018-10-25] MEDS: LEVOTHYROXINE SODIUM 0.1 MG TAB PO SCH (08:48)
[2018-10-25] MEDS: LISINOPRIL 10 MG TAB PO SCH ×2 (08:49→20:51)
[2018-10-25] MEDS: METOPROLOL SUCCINATE XL 25 MG TAB PO SCH (08:49)
[2018-10-25] MEDS: ASPIRIN (CHEWABLE) 81 MG TAB PO SCH (08:49)
[2018-10-25] MEDS: NON-FORMULARY MEDICATION 1 EA MIS (Raloxifene Hcl [Evista] 60 MG) PO SCH (08:57)
[2018-10-25] MEDS: NICOTINE PATCH 14 MG TD SCH (08:57)
[2018-10-25] MEDS: ENOXAPARIN SODIUM 40 MG/0.4 ML SYG SUBCU SCH (13:04)
[2018-10-25] MEDS ORDERED: SODIUM CHL 0.9% 50ML MIN-BAG+ 50 ML IVPB ONE (15:07)
[2018-10-25] MEDS ORDERED: cefTRIAXone SODIUM 1 GM VIAL ONE (15:07)
[2018-10-25] MEDS: cefTRIAXone SODIUM 1 GM in SODIUM CHL 0.9% 50ML MIN-BAG+ 50 ML IVPB SCH (15:36)
[2018-10-25] MEDS ORDERED: SODIUM CHLORIDE 0.9% 250ML 250 ML ONE (19:35)
[2018-10-25] MEDS ORDERED: VANCOMYCIN HCL INJ 500 MG VIAL ONE (19:35)
[2018-10-25] MEDS ORDERED: VANCOMYCIN HCL INJ 1,000 MG VIAL IVPB ONE (19:35)
[2018-10-25] MEDS: VANCOMYCIN HCL INJ 1,000 MG, VANCOMYCIN HCL INJ 250 MG in SODIUM CHLORIDE 0.9% 250ML 25... IVPB SCH (19:45)
[2018-10-25] MEDS: INSULIN DETEMIR 100 UNITS/ML PEN SUBCU SCH (20:50)
[2018-10-25] MEDS: ATORVASTATIN 20 MG TAB PO SCH (20:50)
[2018-10-25] MEDS: traMADol HCL 50 MG TAB PO SCH (20:51)
[2018-10-26] MEDS: PANTOPRAZOLE SODIUM TAB 40 MG PO SCH (06:01)
[2018-10-26] MEDS: INSULIN LISPRO 100 UNITS/ML PEN SUBCU SCH ×4 (07:24→21:30)
[2018-10-26] MEDS: NON-FORMULARY MEDICATION 1 EA MIS (Raloxifene Hcl [Evista] 60 MG) PO SCH (09:28)
[2018-10-26] MEDS: LISINOPRIL 10 MG TAB PO SCH ×2 (09:28→20:33)
[2018-10-26] MEDS: LEVOTHYROXINE SODIUM 0.075 MG TAB PO SCH (09:28)
[2018-10-26] MEDS: hydroCHLOROthiazide 12.5 MG CAP PO SCH ×2 (09:28→20:33)
[2018-10-26] MEDS: LEVOTHYROXINE SODIUM 0.1 MG TAB PO SCH (09:28)
[2018-10-26] MEDS: ASPIRIN (CHEWABLE) 81 MG TAB PO SCH (09:28)
[2018-10-26] MEDS: METOPROLOL SUCCINATE XL 25 MG TAB PO SCH (09:28)
[2018-10-26] MEDS: NICOTINE PATCH 14 MG TD SCH (09:29)
[2018-10-26] MEDS: HYDROcodone 5MG/APAP 325MG 1 EA TAB PO PRN (11:58)
[2018-10-26] MEDS ORDERED: SODIUM CHL 0.9% 50ML MIN-BAG+ 50 ML IVPB ONE (14:38)
[2018-10-26] MEDS ORDERED: cefTRIAXone SODIUM 1 GM VIAL ONE (14:38)
[2018-10-26] MEDS: cefTRIAXone SODIUM 1 GM in SODIUM CHL 0.9% 50ML MIN-BAG+ 50 ML IVPB SCH (14:41)
[2018-10-26] MEDS: ENOXAPARIN SODIUM 40 MG/0.4 ML SYG SUBCU SCH (14:41)
[2018-10-26] MEDS ORDERED: SODIUM CHLORIDE 0.9% 250ML 250 ML ONE (19:37)
[2018-10-26] MEDS ORDERED: VANCOMYCIN HCL INJ 500 MG VIAL ONE (19:37)
[2018-10-26] MEDS ORDERED: VANCOMYCIN HCL INJ 1,000 MG VIAL IVPB ONE (19:38)
[2018-10-26] MEDS: VANCOMYCIN HCL INJ 1,000 MG, VANCOMYCIN HCL INJ 250 MG in SODIUM CHLORIDE 0.9% 250ML 25... IVPB SCH (20:11)
[2018-10-26] MEDS: ATORVASTATIN 20 MG TAB PO SCH (20:33)
[2018-10-26] MEDS: traMADol HCL 50 MG TAB PO SCH (20:33)
[2018-10-26] MEDS: INSULIN DETEMIR 100 UNITS/ML PEN SUBCU SCH (21:30)
[2018-10-27] MEDS: PANTOPRAZOLE SODIUM TAB 40 MG PO SCH (06:03)
[2018-10-27] MEDS: INSULIN LISPRO 100 UNITS/ML PEN SUBCU SCH ×4 (07:18→20:57)
[2018-10-27] MEDS: LISINOPRIL 10 MG TAB PO SCH ×2 (09:22→20:59)
[2018-10-27] MEDS: ASPIRIN (CHEWABLE) 81 MG TAB PO SCH (09:22)
[2018-10-27] MEDS: hydroCHLOROthiazide 12.5 MG CAP PO SCH ×2 (09:23→20:59)
[2018-10-27] MEDS: LEVOTHYROXINE SODIUM 0.075 MG TAB PO SCH (09:23)
[2018-10-27] MEDS: LEVOTHYROXINE SODIUM 0.1 MG TAB PO SCH (09:23)
[2018-10-27] MEDS: METOPROLOL SUCCINATE XL 25 MG TAB PO SCH (09:23)
[2018-10-27] MEDS: HYDROcodone 5MG/APAP 325MG 1 EA TAB PO PRN (09:23)
[2018-10-27] MEDS: NICOTINE PATCH 14 MG TD SCH (09:25)
[2018-10-27] MEDS: NON-FORMULARY MEDICATION 1 EA MIS (Raloxifene Hcl [Evista] 60 MG) PO SCH (09:25)
[2018-10-27] MEDS: ENOXAPARIN SODIUM 40 MG/0.4 ML SYG SUBCU SCH (13:11)
[2018-10-27] MEDS: IV SET AND CAP CHANGE INJ INJ SCH (13:11)
[2018-10-27] MEDS ORDERED: SODIUM CHL 0.9% 50ML MIN-BAG+ 50 ML IVPB ONE (14:51)
[2018-10-27] MEDS ORDERED: cefTRIAXone SODIUM 1 GM VIAL ONE (14:51)
[2018-10-27] MEDS: cefTRIAXone SODIUM 1 GM in SODIUM CHL 0.9% 50ML MIN-BAG+ 50 ML IVPB SCH (14:57)
[2018-10-27] MEDS ORDERED: SODIUM CHLORIDE 0.9% 250ML 250 ML ONE (19:35)
[2018-10-27] MEDS ORDERED: VANCOMYCIN HCL INJ 500 MG VIAL ONE (19:35)
[2018-10-27] MEDS ORDERED: VANCOMYCIN HCL INJ 1,000 MG VIAL IVPB ONE (19:36)
[2018-10-27] MEDS: VANCOMYCIN HCL INJ 1,000 MG, VANCOMYCIN HCL INJ 250 MG in SODIUM CHLORIDE 0.9% 250ML 25... IVPB SCH (19:58)
[2018-10-27] MEDS: INSULIN DETEMIR 100 UNITS/ML PEN SUBCU SCH (20:58)
[2018-10-27] MEDS: traMADol HCL 50 MG TAB PO SCH (20:59)
[2018-10-27] MEDS: ATORVASTATIN 20 MG TAB PO SCH (20:59)
[2018-10-28] MEDS: HYDROcodone 5MG/APAP 325MG 1 EA TAB PO PRN (00:21)
[2018-10-28] MEDS: PANTOPRAZOLE SODIUM TAB 40 MG PO SCH (06:06)
[2018-10-28] MEDS: INSULIN LISPRO 100 UNITS/ML PEN SUBCU SCH ×4 (07:28→21:01)
[2018-10-28] MEDS: hydroCHLOROthiazide 12.5 MG CAP PO SCH ×2 (09:50→20:14)
[2018-10-28] MEDS: LEVOTHYROXINE SODIUM 0.075 MG TAB PO SCH (09:50)
[2018-10-28] MEDS: METOPROLOL SUCCINATE XL 25 MG TAB PO SCH (09:50)
[2018-10-28] MEDS: NICOTINE PATCH 14 MG TD SCH ×2 (09:50→09:57)
[2018-10-28] MEDS: LISINOPRIL 10 MG TAB PO SCH ×2 (09:50→20:14)
[2018-10-28] MEDS: LEVOTHYROXINE SODIUM 0.1 MG TAB PO SCH (09:50)
[2018-10-28] MEDS: ASPIRIN (CHEWABLE) 81 MG TAB PO SCH (09:50)
[2018-10-28] MEDS: NON-FORMULARY MEDICATION 1 EA MIS (Raloxifene Hcl [Evista] 60 MG) PO SCH (11:34)
--- NOTE | 2018-10-28 12:33 | PN ---
DATE: 10/27/18 SUPERVISING PHYSICIAN: Pete Cazares MD SUBJECTIVE: The patient is doing well, she is tolerating her antibiotic therapy. The wound seems to be healing but slow. The pain is less. She has had no complaints of diarrhea or any other complications. We did discuss that Dr. Guadalupe is working to get her set up with cardiology with Dr. Hurley for possible stenting of that leg. I believe Dr. Hurley will be here this Monday so consideration for possible discharge on Monday. OBJECTIVE: VITAL SIGNS: She remains afebrile. Temperature 97.9, pulse 53, blood pressure 152/52, respirations 18, saturation 96% on room air. GENERAL: The patient is resting comfortably, she appears to be in no acute disease. CHEST: Lung sounds remain clear. HEART: Regular rate and rhythm. ABDOMEN: Soft, non-tender, positive bowel sound. EXTREMITIES: Lower extremities are still without any edema. Left lower extremity shows some is probably related to with less erythema. Left still cold, still as eschar tissue attached but no signs of worsening infectious process. NEUROLOGIC: She is alert and oriented x 3. LABORATORY: Blood sugars range between 62 and 204. She had a vancomycin trough on the that was 15.5. ASSESSMENT: 1. Recurrent cellulitis of the left lower extremity with left fifth toe osteomyelitis, likely complicated from peripheral vascular disease, awaiting consultation with cardiology. 2. Coronary artery disease. 3. Diabetes mellitus type 2. 4. Hypothyroidism. 5. History of myocardial infarction. 6. Hyperlipidemia. PLAN: Will continue with current plan of care which is Rocephin and vancomycin followed by pharmacy protocol. She does remain on DVT and GI ulcer prophylaxis. She is again encouraged to ambulate, although this has caused some discomfort and she is able to do this with assistance of the nurses. Again, Dr. Guadalupe I think is anticipating that she will discharge on Monday so she can be seen by Dr. Hurley and possibly set up to have a stenting for assistance in the increase in her vascular flow given that she does have significant peripheral vascular disease and is diabetic. Until that point, we will continue to monitor as needed. #[id number] [facility]
[2018-10-28] MEDS: ENOXAPARIN SODIUM 40 MG/0.4 ML SYG SUBCU SCH (12:53)
[2018-10-28] MEDS ORDERED: SODIUM CHL 0.9% 50ML MIN-BAG+ 50 ML IVPB ONE (14:28)
[2018-10-28] MEDS ORDERED: cefTRIAXone SODIUM 1 GM VIAL ONE (14:29)
[2018-10-28] MEDS: cefTRIAXone SODIUM 1 GM in SODIUM CHL 0.9% 50ML MIN-BAG+ 50 ML IVPB SCH (14:37)
[2018-10-28] MEDS ORDERED: VANCOMYCIN HCL INJ 500 MG VIAL ONE (19:21)
[2018-10-28] MEDS ORDERED: VANCOMYCIN HCL INJ 1,000 MG VIAL IVPB ONE (19:21)
[2018-10-28] MEDS ORDERED: SODIUM CHLORIDE 0.9% 250ML 250 ML ONE (19:21)
[2018-10-28] MEDS: VANCOMYCIN HCL INJ 1,000 MG, VANCOMYCIN HCL INJ 250 MG in SODIUM CHLORIDE 0.9% 250ML 25... IVPB SCH (20:13)
[2018-10-28] MEDS: traMADol HCL 50 MG TAB PO SCH (20:14)
[2018-10-28] MEDS: ATORVASTATIN 20 MG TAB PO SCH (20:14)
[2018-10-28] MEDS: INSULIN DETEMIR 100 UNITS/ML PEN SUBCU SCH (21:31)
[2018-10-29] MEDS ORDERED: HYDROcodone 5MG/APAP 325MG 1 EA TAB ONE (02:30)
[2018-10-29] MEDS: HYDROcodone 5MG/APAP 325MG 1 EA TAB PO PRN (02:34)
[2018-10-29] MEDS: PANTOPRAZOLE SODIUM TAB 40 MG PO SCH (05:49)
[2018-10-29] MEDS: INSULIN LISPRO 100 UNITS/ML PEN SUBCU SCH ×4 (07:42→21:27)
[2018-10-29] MEDS: ASPIRIN (CHEWABLE) 81 MG TAB PO SCH (08:35)
[2018-10-29] MEDS: hydroCHLOROthiazide 12.5 MG CAP PO SCH ×2 (08:35→20:15)
[2018-10-29] MEDS: METOPROLOL SUCCINATE XL 25 MG TAB PO SCH (08:35)
[2018-10-29] MEDS: LISINOPRIL 10 MG TAB PO SCH ×2 (08:35→20:15)
[2018-10-29] MEDS: LEVOTHYROXINE SODIUM 0.1 MG TAB PO SCH (08:35)
[2018-10-29] MEDS: LEVOTHYROXINE SODIUM 0.075 MG TAB PO SCH (08:35)
[2018-10-29] MEDS: NICOTINE PATCH 14 MG TD SCH (08:54)
[2018-10-29] MEDS: NON-FORMULARY MEDICATION 1 EA MIS (Raloxifene Hcl [Evista] 60 MG) PO SCH (08:54)
[2018-10-29] MEDS: ENOXAPARIN SODIUM 40 MG/0.4 ML SYG SUBCU SCH (12:56)
[2018-10-29] MEDS ORDERED: SODIUM CHL 0.9% 50ML MIN-BAG+ 50 ML IVPB ONE (14:16)
[2018-10-29] MEDS ORDERED: cefTRIAXone SODIUM 1 GM VIAL ONE (14:17)
[2018-10-29] MEDS: cefTRIAXone SODIUM 1 GM in SODIUM CHL 0.9% 50ML MIN-BAG+ 50 ML IVPB SCH (14:24)
--- NOTE | 2018-10-29 18:09 | PN ---
DATE: 10/29/18 SUPERVISING PHYSICIAN: Pardeep Guadalupe M.D. SUBJECTIVE: The patient is lying in bed. She has no complaints. We discussed her plan of care. She saw Dr. Guadalupe this morning and she agrees with our plan. OBJECTIVE: VITAL SIGNS: Temperature 98.2, heart rate 54, blood pressure 175/69, respiratory rate 16, O2 sat 94% on room air. GENERAL: This is a 78 year-old female patient lying in her hospital bed. She is in no acute distress. NEUROLOGIC: She is awake, alert and oriented times three. ASSESSMENT: 1. Recurrent cellulitis of the left lower extremity with left fifth toe osteomyelitis, likely complicated from peripheral vascular disease, awaiting consultation with cardiology. 2. Coronary artery disease. 3. Diabetes mellitus type 2. 4. Hypothyroidism. 5. History of myocardial infarction. 6. Hyperlipidemia. PLAN: We will continue present supportive care. Dr. Guadalupe' office will be trying to get in touch with [employer] to okay a followup MRI as recommended by Dr. Guadalupe, her PCP, as well as Infectious Diseases Dr. Griffith, as the results of that may most likely guide our antibiotic coverage. For now, we will continue with her Rocephin and vancomycin. Hopefully we can get her MRI scheduled prior to discharge. If not, she will see Dr. Guadalupe in followup. She most likely will do vancomycin for outpatient IV antibiotic administration. We will follow the recommendations of Dr. Griffith, her Infectious Diseases doctor. She will also need a followup appointment with Dr. Griffith. Otherwise will continue to monitor closely and follow as needed. #[id number] [facility]
[2018-10-29] MEDS: VANCOMYCIN HCL INJ 1,000 MG, VANCOMYCIN HCL INJ 250 MG in SODIUM CHLORIDE 0.9% 250ML 25... IVPB SCH (19:52)
[2018-10-29] MEDS: ATORVASTATIN 20 MG TAB PO SCH (20:15)
[2018-10-29] MEDS: INSULIN DETEMIR 100 UNITS/ML PEN SUBCU SCH (21:27)
[2018-10-29] MEDS: traMADol HCL 50 MG TAB PO SCH (21:30)
[2018-10-30] MEDS: PANTOPRAZOLE SODIUM TAB 40 MG PO SCH (06:10)
[2018-10-30] MEDS: INSULIN LISPRO 100 UNITS/ML PEN SUBCU SCH ×2 (07:31→11:47)
[2018-10-30] MEDS: hydroCHLOROthiazide 12.5 MG CAP PO SCH (08:21)
[2018-10-30] MEDS: ASPIRIN (CHEWABLE) 81 MG TAB PO SCH (08:21)
[2018-10-30] MEDS: LEVOTHYROXINE SODIUM 0.1 MG TAB PO SCH (08:21)
[2018-10-30] MEDS: LEVOTHYROXINE SODIUM 0.075 MG TAB PO SCH (08:21)
[2018-10-30] MEDS: METOPROLOL SUCCINATE XL 25 MG TAB PO SCH (08:22)
[2018-10-30] MEDS: LISINOPRIL 10 MG TAB PO SCH (08:22)
[2018-10-30] MEDS: NON-FORMULARY MEDICATION 1 EA MIS (Raloxifene Hcl [Evista] 60 MG) PO SCH (08:23)
[2018-10-30] MEDS: NICOTINE PATCH 14 MG TD SCH (08:23)
[2018-10-30] MEDS ORDERED: VANCOMYCIN HCL INJ 1,000 MG in SODIUM CHLORIDE 0.9% 250ML 250 ML IVPB SCH (09:00)
[2018-10-30] MEDS ORDERED: diazePAM 5 MG TAB PO ONE (09:08)
[2018-10-30] MEDS ORDERED: SODIUM CHLORIDE 0.9% 250ML 250 ML ONE (09:12)
[2018-10-30] MEDS ORDERED: VANCOMYCIN HCL INJ 1,000 MG VIAL IVPB ONE (09:12)
[2018-10-30] MEDS ORDERED: HYDROcodone 5MG/APAP 325MG 1 EA TAB ONE (10:36)
[2018-10-30] MEDS: HYDROcodone 5MG/APAP 325MG 1 EA TAB PO PRN (10:38)
[2018-10-30] MEDS ORDERED: cefTRIAXone SODIUM 1 GM in SODIUM CHL 0.9% 50ML MIN-BAG+ 50 ML IVPB SCH (11:00)
[2018-10-30] MEDS ORDERED: MORPHINE SULFATE INJ 10 MG/ML VIAL IV ONE (11:16)
[2018-10-30] MEDS ORDERED: cefTRIAXone SODIUM 1 GM VIAL ONE (11:48)
[2018-10-30] MEDS ORDERED: SODIUM CHL 0.9% 50ML MIN-BAG+ 50 ML IVPB ONE (11:48)
[2018-10-30] MEDS: ENOXAPARIN SODIUM 40 MG/0.4 ML SYG SUBCU SCH (12:23)
[2018-10-30] MEDS: IV SET AND CAP CHANGE INJ INJ SCH (12:24)
[2018-10-30 13:47] VITALS: BP 150/63; TEMP 98.4; O2SAT 98
--- NOTE | 2018-10-30 15:57 | CT ---
Study: CT of the Left Foot. Indication: osteomyelitis of left 5th toe Technique: Axial CT images were acquired through the left foot without intravenous contrast. Coronal and sagittal reformats performed. This exam was performed according to our departmental dose-optimization program, which includes automated exposure control, adjustment of the mA and/or kV according to patient size and/or use of iterative reconstruction technique. Comparison: MRI October 17, 2018. Findings: Extensive subcutaneous edema throughout the left foot without organized/drainable fluid collection identified. No acute fracture, periostitis, or cortical osteolysis. Moderate osteoarthritis first MTP joint and first IP joint. TMT joint alignment normal. Osteopenia. Impression: Cellulitis throughout the left foot without features of osteomyelitis. A repeat MRI examination can better evaluate if the patient can tolerate. Electronically signed by: Sean Sanchez MD 10/30/2018 3:55 PM CDT
--- NOTE | 2018-10-30 19:47 | DS ---
SUPERVISING PHYSICIAN: Pardeep Guadalupe M.D. DISCHARGE DIAGNOSIS: 1. Recurrent cellulitis of the left lower extremity with left fifth toe osteomyelitis, likely complicated from peripheral vascular disease. She has an appointment with her stiff leg derrick operator, Dr. Hurley, for consultation. 2. Coronary artery disease. 3. Diabetes mellitus type 2. 4. Hypothyroidism. 5. History of myocardial infarction. 6. Hyperlipidemia. HISTORY OF PRESENT ILLNESS: This is a 78 year-old female patient who was originally seen in her doctor's office and was admitted to the hospital on 10/19 through 10/24 for IV antibiotics due to recurrent left lower extremity cellulitis which was found to be osteomyelitis via MRI. She had an MRI at that time that was nondiagnostic due to her movement due to the pain, but 2 radiologists and her PCP, Dr. Pardeep Guadalupe, all concurred that the MRI was consistent with osteomyelitis of that left fifth toe. Dr. Griffith, Infectious Diseases, consulted in [place], said that she felt that she needed 6 weeks of IV antibiotics. So after her Acute Care stay she was discharged and readmitted to Swing Bed status for continued IV antibiotics. She received vancomycin and Rocephin. She also had a PICC line placed. She has continued her Rocephin and vancomycin through today. At this point she can be discharged to outpatient vancomycin treatments. We will discontinue the Rocephin. The edema to that left lower extremity has improved but she continues to have patches of cellulitis as well as dark necrotic-type skin to the tip of the toes that has slightly improved since admission. She continues to have some mild pain at that site. It is especially tender to palpation. Today prior to discharge, we attempted to get an MRI of that foot, but due to the coil being placed next to that foot the patient could not tolerate the pain, and so the MRI was not completed. A CT of the lower extremity was also performed and the impression is pending. She will be discharged home today to continue IV vancomycin 250 mg IV piggyback every 36 hours. LABORATORY: She had one 62 blood sugar and the rest of her blood sugars have run between 79 and 233. RADIOLOGY: CT of the lower extremity is pending. DISCHARGE PLAN: The patient will be discharged home in stable condition. She is to resume her previous diet and increase her activity as tolerated. Dr. Guadalupe' office has sent a referral for physical therapy. The patient was instructed that until her physical therapy has been set up that she is to continue use of her walker until instructed otherwise. She has a followup appointment with Dr. Guadalupe on 11/06/18 at 11:00 AM. She has an appointment with Dr. Griffith, Infectious Diseases, on 11/12/18, her time is pending. It is here at the [place] office and she also is to have an angiogram of her left leg per Dr. Hurley which he will call her for the scheduled appointment. Her outpatient IV antibiotic therapy will start tomorrow night at 8:00 PM. Her vancomycin will be per Pharmacy protocol. She is to continue her antibiotic therapy through the 05 of December. She has received a calendar for her schedules, although she was instructed that they may change as her labs are being monitored and due to her kidney function she may have to change her dosing. She is to call Dr. Guadalupe' office or return to the hospital for any problems or complications. DISCHARGE MEDICATIONS: 1. Crestor. 2. Evista. 3. Nitroglycerin. 4. Metoprolol. 5. Lisinopril/HCTZ. 6. Levothyroxine. 7. Apidra. 8. Aspirin. 9. Lisinopril. 10. Tramadol. 11. Lantus insulin. 12. Hydrocodone. 13. Humalog insulin. 14. Protonix. #[id number] [facility]
== END 2018-10-30 16:09 | disposition home or self-care (01) | DRG 638 ==
LOC: UNDOADMIN 12:08 → MS 12:08
PROVIDERS: ADMIT Nurse Practitioner; ATTEND Family Medicine
DX: E11.69 Type 2 diabetes mellitus with other specified complication (principal); M86.8X7 Other osteomyelitis, ankle and foot; L03.032 Cellulitis of left toe; E11.51 Type 2 diabetes mellitus with diabetic peripheral angiopathy without gangrene; E03.9 Hypothyroidism, unspecified; E78.5 Hyperlipidemia, unspecified; I10 Essential (primary) hypertension; M85.80 Other specified disorders of bone density and structure, unspecified site; I25.10 Atherosclerotic heart disease of native coronary artery without angina pectoris; I25.2 Old myocardial infarction; F17.210 Nicotine dependence, cigarettes, uncomplicated; Z95.5 Presence of coronary angioplasty implant and graft; Z96.651 Presence of right artificial knee joint

== ENCOUNTER → 2018-12-11 | Outpatient (CLI) | payer OTHER ==
--- NOTE | 2018-12-12 08:45 | US ---
EXAM DESCRIPTION: Extremity,Lower LT Arteries (accession [id number]), Venous,Lower Extremity LT (accession [id number]): Ultrasound. CLINICAL HISTORY: 78 years Female Peripheral vascular disease, unspecified COMPARISON: None. TECHNIQUE: Doppler evaluation of the left lower extremity arterial flow waveforms and velocities. Measurement of systolic blood pressures in the left brachial artery and the left: distal lower extremity. FINDINGS: Arterial waveforms in the left lower extremity: Monophasic from the left common femoral artery through the left dorsalis pedis artery.. Comments: Velocities in the left lower extremity are within the normal range. DEMIAN (BP units mm Hg.) LEFT Brachial SBP 182. PT SBP not measured. DEMIAN measured. DP SBP 181. DEMIAN 0.99. IMPRESSION: Appearance of the left lower extremity arterial waveforms, velocities in the left lower extremity arteries, and DEMIAN measurements of the left lower extremity indicate NO imaging evidence of significant atherosclerotic occlusive disease. Electronically signed by: Christophe Lozano MD 12/12/2018 8:42 AM CDT
--- NOTE | 2018-12-12 08:46 | US ---
EXAM DESCRIPTION: Extremity,Lower LT Arteries (accession [id number]), Venous,Lower Extremity LT (accession [id number]): Ultrasound. CLINICAL HISTORY: 78 years Female Peripheral vascular disease, unspecified COMPARISON: None. TECHNIQUE: Doppler evaluation of the left lower extremity arterial flow waveforms and velocities. Measurement of systolic blood pressures in the left brachial artery and the left: distal lower extremity. FINDINGS: Arterial waveforms in the left lower extremity: Monophasic from the left common femoral artery through the left dorsalis pedis artery.. Comments: Velocities in the left lower extremity are within the normal range. DEMIAN (BP units mm Hg.) LEFT Brachial SBP 182. PT SBP not measured. DEMIAN measured. DP SBP 181. DEMIAN 0.99. IMPRESSION: Appearance of the left lower extremity arterial waveforms, velocities in the left lower extremity arteries, and DEMIAN measurements of the left lower extremity indicate NO imaging evidence of significant atherosclerotic occlusive disease. Electronically signed by: Christophe Lozano MD 12/12/2018 8:42 AM CDT
== END ==
LOC: US 08:32
PROVIDERS: ATTEND Surgery
DX: I73.9 Peripheral vascular disease, unspecified (principal)

== ENCOUNTER → 2019-05-14 | Outpatient (CLI) | payer OTHER | LOC: GMAJ 10:45 | PROVIDERS: ATTEND Family Medicine | DX: E03.9 Hypothyroidism, unspecified (principal); E78.2 Mixed hyperlipidemia; E11.9 Type 2 diabetes mellitus without complications; I10 Essential (primary) hypertension ==

== ENCOUNTER 2019-05-17 10:12 | Inpatient (IN) | payer OTHER ==
[2019-05-17] MEDS ORDERED: DEXTROSE 10% 500ML 500 ML IVS ONE (10:45)
[2019-05-17] MEDS ORDERED: POTASSIUM CHLORIDE ELIXIR 20 MEQ/15 ML UD PO ONE (10:54)
[2019-05-17] MEDS ORDERED: LISINOPRIL 10 MG TAB PO ONE (11:59)
[2019-05-17] MEDS ORDERED: cefTRIAXone SODIUM 1 GM in SODIUM CHL 0.9% 50ML MIN-BAG+ 50 ML IVPB ONE (12:22)
[2019-05-17] MEDS ORDERED: cefTRIAXone SODIUM 1 GM VIAL ONE (12:57)
[2019-05-17] MEDS ORDERED: SODIUM CHL 0.9% 50ML MIN-BAG+ 50 ML IVPB ONE (12:58)
[2019-05-17] MEDS ORDERED: amLODIPine BESYLATE 5 MG TAB PO ONE (12:59)
[2019-05-17] MEDS ORDERED: METOPROLOL TARTRATE INJ 5 MG/5 ML VIAL IV ONE (13:59)
--- NOTE | 2019-05-17 14:13 | HP ---
SUPERVISING PHYSICIAN: Gerald Delgado MD CHIEF COMPLAINT: Low blood sugar. HISTORY OF PRESENT ILLNESS: This a 78-year-old female patient who was sent to the Emergency Room today from her physician's office, Dr. Guadalupe. She had been feeling poorly over the last few days and actually had a workup several days ago where she had a TSH around 40. It was felt that she was poorly compliant with her medications and it was unknown how she was taking any of those, so Dr. Guadalupe had her return to the clinic today with her medications for clarification. Her son was bringing her to the office and she was somewhat lethargic as well as diaphoretic. They did stop on the way to the doctor's office and actually got some food. She was at her doctor's office and was somewhat lethargic. She had her blood sugar checked and even after eating, her blood sugar was in the 50s and she was sent to the Emergency Room. Her hemoglobin A1c at her physician's office was over 12. TSH was 40. Her son felt that she had actually taken her long-acting insulin and thought it was her short-acting insulin and felt that was the reason her blood sugars were quite low. In the Emergency Room, her initial vital signs showed temperature 95.1, heart rate 53, blood pressure 197/79. It went up as high as 205/65. Respiratory rate was 20, O2 saturation 99%. Her lab studies showed CBC unremarkable. Electrolytes were basically within normal limits with the exception of her potassium was low at 3.1. Blood sugar was 49 and then came up to 76. She received some D50 as well as placed on D10 IV fluids. Her cardiac enzymes were negative. She received some Lopressor IV and was given of her some routine medication. She also was found to have a urinary tract infection and she was started on Rocephin. I was called for hospital admission. PAST MEDICAL HISTORY: 1. Diabetes mellitus, type 2. 2. Hypothyroidism on supplementation. 3. Coronary artery disease. 4. Hyperlipidemia. 5. Hypertension. 6. Myocardial infarction times one. 7. Osteoarthritis. PAST SURGICAL HISTORY: 1. Appendectomy. 2. Hysterectomy. 3. Bladder suspension. 4. Cataract surgery. 5. Hernia repair. 6. Right total knee arthroplasty. 7. Percutaneous transluminal coronary angioplasty. OUTPATIENT MEDICATIONS: 1. Levemir insulin. 2. Apidra short-acting insulin. 3. Levothyroxine. 4. Lisinopril. 5. Metoprolol. 6. Evista. 7. Crestor. ALLERGIES: NO KNOWN ALLERGIES. SOCIAL HISTORY: She is retired. She has four children. She has a past history of tobacco use. She denies any ETOH or illicit drug use. REVIEW OF SYSTEMS: GENERAL: Positive for malaise and weakness. Negative for weight changes. HEENT: Negative for sinus symptoms, ear pain, vision changes or sore throat. RESPIRATORY: Negative for wheezing, coughing or shortness of breath. CARDIAC: Negative for chest pain, palpitations or tachycardia. GASTROINTESTINAL: Positive for nausea. Negative for vomiting, diarrhea, constipation. GENITOURINARY: Negative for hematuria, dysuria or polyuria. MUSCULOSKELETAL: Negative for arthralgias, myalgias. SKIN: Positive for diaphoresis. Negative for lesions or rashes. NEUROLOGIC: Positive for confusion although it is improved. Negative for headache or seizures. PHYSICAL EXAMINATION: LABORATORY: Labs and films are as per history of present illness. IMPRESSION: 1. Altered mental status with hypoglycemia in a poorly controlled diabetic with a hemoglobin A1c of 12. 2. Hypertensive crisis. 3. Hypothyroidism with recent TSH of 40. 4. Urinary tract infection. 5. Poor medical compliance most likely due to mild dementia. 6. Diabetes mellitus, type 2. 7. Coronary artery disease. PLAN: The patient has been placed in observation. We will do q.4h. blood sugars. If her blood sugars stabilize, we will add sliding protocol. Her hypertension is improved and we will get her home medications restarted including her Synthroid 0.175 mg daily. I have done extensive hypothyroidism and diabetic teaching. Her son is in the room and we will go over all of her medications tomorrow as soon her clinical condition is stabilized. She is on Lovenox for DVT prophylaxis. I have ordered lab for in the morning. We will continue to monitor the patient closely and follow as needed. [facility][id number] [facility]
--- NOTE | 2019-05-17 14:22 | ED.PDOC ---
History of Present Illness - General Chief Complaint: Diabetic Complaint Time Seen by Provider: 05/17/19 10:14 Source: patient Exam Limitations: no limitations - History of Present Illness Initial Comments: The patient is a 78-year-old femalesent over from clinic primarily due to hypoglycemia. The patient had recently been seen by her primary care doctor and had not been taking her medications appropriately. Hemoglobin A1c had gone up to 12 and TSH and gone up to 40. Since that time the patient has been apparently taking a large amount of insulin as her blood sugar was 50 at the clinic today. She was diaphoretic and mildly confused. She was sent over here for that reason. There has been some apparent significant confusion over her blood pressure medications thyroid medicines and diabetes medicines. The patient may have some mild dementia at baseline. Mental status does improve significantly with improvement in the glucose. No focal neurological deficits otherwise at this time. The patient is pleasant and cooperative. She denies pain anywhere at this point. She reports that she didn't take her medications this morning including her thyroid medicine. She does have some significant sinus bradycardia here but does take metoprolol. She does have long-standing known severe hypertension and it is uncertain which medication she is actually been getting with regularity. She is not having any chest pain or shortness of breath. No headache. No clinical indication of end organ damage from hypertension. For this reason we will try and adjust her oral medications to control her blood pressure for targeting outpatient managementrather than using IV medications.the patient took 47 units of one of her insulins this morning. She is uncertain if it was a long-acting or short-acting form. There is significant confusion as to which insulin she is actually taking. Timing/Duration: unsure Severity: moderate Improving Factors: nothing Worsening Factors: nothing Associated Symptoms: diaphoresis, loss of appetite, malaise, weakness - this mo rning Allergies/Adverse Reactions: Allergies NO KNOWN ALLERGY Allergy (Verified 06/05/15 13:00) Home Medications: Ambulatory Orders Aspirin [Eql Aspirin Low Dose] 81 mg PO DAILY 06/05/15 Insulin Glulisine [Apidra] 4 unit SUBCU AC 06/05/15 Levothyroxine Sodium [Synthroid] 0.175 mg PO DAILY 06/05/15 Metoprolol Succinate [Toprol Xl] 25 mg PO DAILY 06/05/15 Rosuvastatin Calcium [Crestor] 20 mg PO BEDTIME 06/05/15 Lisinopril [Zestril] 40 mg PO BEDTIME #30 tab 06/15/15 Insulin Lispro [Humalog] 0 units SUBCU ACHS pen 10/24/18 Aspirin [Aspirin Low Strength] 81 mg PO 05/17/19 Chlorthalidone [Hygroton] 05/17/19 Citalopram Hydrobromide [Citalopram] 20 mg PO 05/17/19 Clopidogrel Bisulfate [Plavix] 75 mg PO 05/17/19 Insulin Detemir [Levemir] 05/17/19 Isosorbide Mononitrate [Imdur] 30 mg PO 05/17/19 Raloxifene HCl [Evista] 60 mg PO 05/17/19 Review of Systems - Review of Systems Constitutional: States: malaise, weakness EENTM: States: no symptoms reported Respiratory: States: no symptoms reported Cardiology: States: no symptoms reported Gastrointestinal/Abdominal: States: nausea Genitourinary: States: no symptoms reported Musculoskeletal: States: no symptoms reported Skin: States: no symptoms reported Neurological: States: other - she is mildly confused with the hypoglycemia but that does correct Endocrine: States: excessive sweating Hematologic/Lymphatic: States: no symptoms reported All other Systems: No Change from Baseline Past Medical History (General) - Patient Medical History Hx Seizures: No Hx Stroke: No Hx Asthma: No Hx of COPD: No Hx Cardiac Disorders: Yes Hx Congestive Heart Failure: No Hx Pacemaker: No Hx Hypertension: Yes Hx Diabetes: Yes - T2DM Hx MRSA: No - Social History Hx Tobacco Use: No Hx Alcohol Use: No Hx Substance Use: No Hx Physical Abuse: No Hx Emotional Abuse: No Family Medical History - Family History Mother Living Status: Cause of : alzheimer's Hx Family Asthma: No Hx Family Congestive Heart Failure: No Hx Family Hypertension: No Hx Family Stroke: No Hx Cardiac Disease: No Hx Family Diabetes: No Hx Family Cancer: No Father Living Status: Cause of : DM Hx Family Asthma: No Hx Family Congestive Heart Failure: No Hx Family Hypertension: No Hx Family Stroke: No Hx Cardiac Disease: No Hx Family Diabetes: No Hx Family Cancer: No Physical Exam - Physical Exam General Appearance: Alert, Ill Appearing Eye Exam: bilateral normal Ears, Nose, Throat: hearing grossly normal, normal pharynx Neck: full range of motion, supple Respiratory: lungs clear, normal breath sounds, no respiratory distress, no accessory muscle use, other - sinus bradycardia on telemetry Cardiovascular/Chest: normal peripheral pulses, no edema Peripheral Pulses: radial,right: 2+, radial,left: 2+ Gastrointestinal/Abdominal: non tender, soft Rectal Exam: deferred Back Exam: no CVA tenderness, no vertebral tenderness Extremity: normal range of motion, no pedal edema, normal capillary refill Neurologic: jacker II-XII nml as tested, alert, normal mood/affect - after the glucose corrects, oriented x 3 Skin Exam: normal color - initially diaphoretic with hypoglycemia Comments: Vital Signs - 24 hr 05/17/19 05/17/19 05/17/19 10:17 10:41 11:13 Temperature 95.1 F L Pulse Rate [ 53 L 50 L 44 L left brachial] Respiratory 24 16 18 Rate Blood Pressure 197/79 184/64 [left brachial] O2 Sat by Pulse 99 97 Oximetry 05/17/19 05/17/19 12:00 12:06 Temperature 97.2 F L Pulse Rate [ 54 L 50 L left brachial] Respiratory 18 16 Rate Blood Pressure 205/65 205/65 [left brachial] O2 Sat by Pulse 96 96 Oximetry Progress - Progress Progress: 05/17/19 14:26 The patient is a 78-year-old female presenting to the emergency room secondary to primarily hypoglycemia. There is significant confusion with the patient about what she is supposed to be taking and how she is supposed to be managing her diabetes. The patient has been put on low flow D10W to help combat the hypoglycemia. His will have to be followed. It is uncertain whether she took the long-acting or short-acting insulin this morning. The patient is going to require some significant diabetic education. Additionally the patient has significant hypertension and bradycardia. She was given an additional small dose of lisinopril here along with a dose of amlodipine. We will have to see what the effects of these medications are for her. She is are taking lisinopril. She already takes metoprolol. Due to the hypertension being essentially asymptomatic at this point and likely very long-term, we are avoiding IV antihypertensives in favor of adjusting with oral medications in hopes of achieving better outpatient hypertension management. The patient does additionally have a small urinary tract infection and is receiving a dose of Rocephin here. Urine will be cultured. She does additionally have some mild electrolyte abnormalities that will need to be followed. Admit for continued care. the patient does additionally have significant hypothyroidism that will need to be followed and corrected. lanette gibbs [phone] 05/17/19 14:29 - Results/Orders Results/Orders: EKG shows sinus bradycardia at 48 bpm. Right bundle branch block. Essentially normal QT interval. No definitive ST segment or T-wave changes indicative of acute ischemia. Laboratory Tests 05/17/19 05/17/19 05/17/19 10:25 10:30 10:30 WBC 7.9 RBC 4.68 Hgb 13.1 Hct 40.4 MCV 86.4 MCH 28.0 MCHC 32.4 L RDW 13.3 Plt Count 253 MPV 9.1 Absolute Neuts (auto) 5.20 Absolute Lymphs (auto) 1.70 Absolute Monos (auto) 0.70 Absolute Eos (auto) 0.20 Absolute Basos (auto) 0.10 Neutrophils % 65.8 Lymphocytes % 21.6 Monocytes % 8.9 Eosinophils % 2.4 Basophils % 1.3 Sodium 135 Potassium 3.1 L Chloride 101 Carbon Dioxide 22 Anion Gap 15.1 BUN 21 H Creatinine 1.19 BUN/Creatinine Ratio 17.6 POC Glucose 49 L Random Glucose 66 L Serum Osmolality 271.3 L Calcium 9.7 Total Bilirubin 0.5 AST 24 ALT 12 Alkaline Phosphatase 58 Creatine Kinase CK-MB (CK-2) CK-MB (CK-2) % Troponin I B-Natriuretic Peptide Serum Total Protein 7.0 Albumin 4.0 Globulin 3.0 Albumin/Globulin Ratio 1.3 Urine Color Urine Appearance Urine pH Ur Specific [place] Urine Protein Urine Glucose (UA) Urine Ketones Urine Blood Urine Nitrite Urine Bilirubin Urine Urobilinogen Ur Leukocyte Esterase Urine RBC Urine WBC Ur Epithelial Cells Urine Bacteria 05/17/19 05/17/19 05/17/19 11:36 11:39 13:20 WBC RBC Hgb Hct MCV MCH MCHC RDW Plt Count MPV Absolute Neuts (auto) Absolute Lymphs (auto) Absolute Monos (auto) Absolute Eos (auto) Absolute Basos (auto) Neutrophils % Lymphocytes % Monocytes % Eosinophils % Basophils % Sodium Potassium Chloride Carbon Dioxide Anion Gap BUN Creatinine BUN/Creatinine Ratio POC Glucose 76 Random Glucose Serum Osmolality Calcium Total Bilirubin AST ALT Alkaline Phosphatase Creatine Kinase 38 CK-MB (CK-2) 1.3 CK-MB (CK-2) % Not Reportable Troponin I < 0.02 B-Natriuretic Peptide 43.8 Serum Total Protein Albumin Globulin Albumin/Globulin Ratio Urine Color Yellow Urine Appearance Clear Urine pH 7.0 Ur Specific [place] 1.020 Urine Protein 100 H Urine Glucose (UA) Negative Urine Ketones Negative Urine Blood Negative Urine Nitrite Negative Urine Bilirubin Negative Urine Urobilinogen 0.2 Ur Leukocyte Esterase Trace H Urine RBC 0 Urine WBC 5-10 H Ur Epithelial Cells 20-30 Urine Bacteria 3+ H 05/17/19 13:20 WBC RBC Hgb Hct MCV MCH MCHC RDW Plt Count MPV Absolute Neuts (auto) Absolute Lymphs (auto) Absolute Monos (auto) Absolute Eos (auto) Absolute Basos (auto) Neutrophils % Lymphocytes % Monocytes % Eosinophils % Basophils % Sodium Potassium Chloride Carbon Dioxide Anion Gap BUN Creatinine BUN/Creatinine Ratio POC Glucose 168 H D Random Glucose Serum Osmolality Calcium Total Bilirubin AST ALT Alkaline Phosphatase Creatine Kinase CK-MB (CK-2) CK-MB (CK-2) % Troponin I B-Natriuretic Peptide Serum Total Protein Albumin Globulin Albumin/Globulin Ratio Urine Color Urine Appearance Urine pH Ur Specific [place] Urine Protein Urine Glucose (UA) Urine Ketones Urine Blood Urine Nitrite Urine Bilirubin Urine Urobilinogen Ur Leukocyte Esterase Urine RBC Urine WBC Ur Epithelial Cells Urine Bacteria Departure - Departure Clinical Impression: Hypoglycemia, Hypokalemia, Uncontrolled hypertension, Sinus bradycardia Hypothyroidism Qualifiers: Hypothyroidism type: unspecified Qualified Code(s): E03.9 - Hypothyroidism, unspecified Acute cystitis Qualifiers: Hematuria presence: without hematuria Qualified Code(s): N30.00 - Acute cystitis without hematuria Disposition: Admit Patient Home Medications: Ambulatory Orders Aspirin [Eql Aspirin Low Dose] 81 mg PO DAILY 06/05/15 Insulin Glulisine [Apidra] 4 unit SUBCU AC 06/05/15 Levothyroxine Sodium [Synthroid] 0.175 mg PO DAILY 06/05/15 Metoprolol Succinate [Toprol Xl] 25 mg PO DAILY 06/05/15 Rosuvastatin Calcium [Crestor] 20 mg PO BEDTIME 06/05/15 Lisinopril [Zestril] 40 mg PO BEDTIME #30 tab 06/15/15 Insulin Lispro [Humalog] 0 units SUBCU ACHS pen 10/24/18 Aspirin [Aspirin Low Strength] 81 mg PO 05/17/19 Chlorthalidone [Hygroton] 05/17/19 Citalopram Hydrobromide [Citalopram] 20 mg PO 05/17/19 Clopidogrel Bisulfate [Plavix] 75 mg PO 05/17/19 Insulin Detemir [Levemir] 05/17/19 Isosorbide Mononitrate [Imdur] 30 mg PO 05/17/19 Raloxifene HCl [Evista] 60 mg PO 05/17/19 Decision To Admit - Decistion To Admit Decision to Admit Reason: Medical Nature Decision to Admit Date: 05/17/19 Decision to Admit Time: 14:30
[2019-05-17] MEDS ORDERED: NON-FORMULARY MEDICATION 1 EA MIS (Raloxifene Hcl [Evista] 60 MG) PO SCH (16:30)
[2019-05-17] MEDS: ATORVASTATIN 20 MG TAB PO SCH (20:40)
[2019-05-17] MEDS: LISINOPRIL 10 MG TAB PO SCH (20:40)
[2019-05-18] MEDS ORDERED: LEVOTHYROXINE SODIUM 0.075 MG TAB ONE (05:10)
[2019-05-18] MEDS ORDERED: LEVOTHYROXINE SODIUM 0.1 MG TAB ONE (05:10)
[2019-05-18] MEDS ORDERED: LEVOTHYROXINE SODIUM 0.175 MG PO SCH (07:00)
[2019-05-18] MEDS ORDERED: cefTRIAXone SODIUM 1 GM VIAL ONE (08:27)
[2019-05-18] MEDS ORDERED: SODIUM CHL 0.9% 50ML MIN-BAG+ 50 ML IVPB ONE (08:27)
[2019-05-18] MEDS: cefTRIAXone SODIUM 1 GM in SODIUM CHL 0.9% 50ML MIN-BAG+ 50 ML IVPB SCH (08:39)
[2019-05-18] MEDS: CITALOPRAM HBR 20 MG TAB PO SCH (08:39)
[2019-05-18] MEDS: CLOPIDOGREL 75 MG TAB PO SCH (08:39)
[2019-05-18] MEDS: CHLORTHALIDONE 25 MG TAB PO SCH (08:39)
[2019-05-18] MEDS: ASPIRIN (CHEWABLE) 81 MG TAB PO SCH (08:39)
[2019-05-18] MEDS ORDERED: METOPROLOL SUCCINATE XL 25 MG TAB PO SCH (09:00)
[2019-05-18] MEDS ORDERED: DEXTROSE 50% 25 GM/50 ML SYG IV PRN (11:09)
[2019-05-18] MEDS ORDERED: GLUCAGON INJ 1 MG VIAL SUBCU PRN (11:09)
[2019-05-18] MEDS: INSULIN LISPRO 100 UNITS/ML PEN SUBCU SCH ×3 (11:49→22:24)
[2019-05-18] MEDS: ATORVASTATIN 20 MG TAB PO SCH (20:36)
[2019-05-18] MEDS: LISINOPRIL 10 MG TAB PO SCH (20:36)
[2019-05-18] MEDS: ENOXAPARIN SODIUM 40 MG/0.4 ML SYG SUBCU SCH (20:37)
[2019-05-18] MEDS ORDERED: INSULIN DETEMIR 100 UNITS/ML PEN SUBCU SCH (21:00)
[2019-05-18] MEDS ORDERED: INSULIN DETEMIR 100 UNITS/ML PEN SUBCU ONE (22:43)
[2019-05-19] MEDS ORDERED: LEVOTHYROXINE SODIUM 0.075 MG TAB ONE ×2 (03:22→19:09)
[2019-05-19] MEDS ORDERED: LEVOTHYROXINE SODIUM 0.1 MG TAB ONE ×2 (03:22→19:09)
[2019-05-19] MEDS: LEVOTHYROXINE SODIUM 0.1 MG, LEVOTHYROXINE SODIUM 0.075 MG PO SCH ×2 (06:06)
[2019-05-19] MEDS: INSULIN LISPRO 100 UNITS/ML PEN SUBCU SCH ×4 (07:46→20:58)
[2019-05-19] MEDS ORDERED: SODIUM CHLORIDE 0.9% (FLUSH) 10 ML SYG IV PRN (08:27)
[2019-05-19] MEDS ORDERED: IV SET AND CAP CHANGE INJ INJ SCH (08:30)
[2019-05-19] MEDS ORDERED: SODIUM CHL 0.9% 50ML MIN-BAG+ 50 ML IVPB ONE (09:08)
[2019-05-19] MEDS ORDERED: cefTRIAXone SODIUM 1 GM VIAL ONE (09:08)
[2019-05-19] MEDS: CHLORTHALIDONE 25 MG TAB PO SCH (09:44)
[2019-05-19] MEDS: ASPIRIN (CHEWABLE) 81 MG TAB PO SCH (09:44)
[2019-05-19] MEDS: CLOPIDOGREL 75 MG TAB PO SCH (09:44)
[2019-05-19] MEDS: CITALOPRAM HBR 20 MG TAB PO SCH (09:45)
[2019-05-19] MEDS: cefTRIAXone SODIUM 1 GM in SODIUM CHL 0.9% 50ML MIN-BAG+ 50 ML IVPB SCH (09:45)
--- NOTE | 2019-05-19 09:50 | PN ---
DATE: 05/18/2019 SUPERVISING PHYSICIAN: Gerald Delgado MD SUBJECTIVE: The patient is sitting up in her bed. Her 2 sons are at the bedside. We discussed her plan of care including her diabetic coverage and her compliance with her medications. We did extensive diabetic teaching and I answered the questions proposed by both of her sons. She denies shortness of breath, chest pain, nausea or vomiting. OBJECTIVE: VITAL SIGNS: Temperature 97.9, heart rate 53, blood pressure 160/62, her blood pressure has been running between 145/67 and 160/62. Respiratory rate 16, oxygen saturation 96% on room air. GENERAL: This is a 78 year-old female patient who is lying in her hospital bed. She is in no acute distress. RESPIRATORY: Essentially clear to auscultation bilaterally. CARDIAC: Regular rate and rhythm. ABDOMEN: Soft, nondistended, non-tender, bowel sounds are positive. NEURO: She is awake, alert, and oriented x3. LABORATORY: CBC is unremarkable. Electrolytes are basically within normal limits. Blood sugars have run between 194 and 337. All other labs and films have been reviewed via the EMR. ASSESSMENT: 1. Altered mental status with hypoglycemia in a poorly controlled diabetic with a hemoglobin A1c of 12. 2. Hypertensive crisis. 3. Hypothyroidism with recent TSH of 40. 4. Urinary tract infection. 5. Poor medical compliance most likely due to mild dementia. 6. Diabetes mellitus, type 2. 7. Coronary artery disease. PLAN: We will continue present supportive. Her blood sugar checks have been changed to a.c. and h.s. and I have added sliding scale insulin protocol. Her medications have all been restarted and her blood pressures are much improved. I will add back her long acting insulin this evening. I have recommended to the family that she get home health and they have decided on [facility]. They are also thinking about getting her a sitter as well. I also discussed with her how to take thyroid medication and hopefully we can discharge her tomorrow with close followup with Dr. Guadalpue. She does have an appointment with him on Monday and we will continue to monitor her closely and follow as needed. #[id number] [facility]
[2019-05-19] MEDS ORDERED: INSULIN DETEMIR 100 UNITS/ML PEN SUBCU SCH (15:10)
[2019-05-19] MEDS: ENOXAPARIN SODIUM 40 MG/0.4 ML SYG SUBCU SCH (20:06)
[2019-05-19] MEDS: ATORVASTATIN 20 MG TAB PO SCH (20:06)
[2019-05-19] MEDS: LISINOPRIL 10 MG TAB PO SCH (20:06)
[2019-05-20 02:11] VITALS: O2SAT 99
[2019-05-20] MEDS: LEVOTHYROXINE SODIUM 0.1 MG, LEVOTHYROXINE SODIUM 0.075 MG PO SCH ×2 (05:45)
[2019-05-20] MEDS ORDERED: SODIUM CHL 0.9% 50ML MIN-BAG+ 50 ML IVPB ONE (07:43)
[2019-05-20] MEDS ORDERED: cefTRIAXone SODIUM 1 GM VIAL ONE (07:43)
[2019-05-20] MEDS: CHLORTHALIDONE 25 MG TAB PO SCH (08:08)
[2019-05-20] MEDS: cefTRIAXone SODIUM 1 GM in SODIUM CHL 0.9% 50ML MIN-BAG+ 50 ML IVPB SCH (08:08)
[2019-05-20] MEDS: ASPIRIN (CHEWABLE) 81 MG TAB PO SCH (08:08)
[2019-05-20] MEDS: CITALOPRAM HBR 20 MG TAB PO SCH (08:08)
[2019-05-20] MEDS: SODIUM CHLORIDE 0.9% (FLUSH) 10 ML SYG IV SCH ×2 (08:11→12:47)
[2019-05-20] MEDS: INSULIN LISPRO 100 UNITS/ML PEN SUBCU SCH ×2 (08:11→12:46)
--- NOTE | 2019-05-20 08:12 | PN ---
SUPERVISING PHYSICIAN: Gerald Delgado MD DATE: 05/19/2019 SUBJECTIVE: The patient is sitting up in her bed. It is reported by nursing that she had a 59 blood sugar the night before. I discussed it with her son and the patient if she had had any symptoms. At this point, she denied any dizziness, nausea, diaphoresis, chest pain, nausea or vomiting. OBJECTIVE: VITAL SIGNS: Temperature 98.1. Heart rate 56. Blood pressure 154/60. Respiratory rate 16. O2 saturation 97% on room air. RESPIRATORY: Essentially clear to auscultation bilaterally. CARDIAC: Regular rate and rhythm. ABDOMEN: Soft, nondistended, nontender, bowel sounds are positive. NEUROLOGIC: She is awake, alert, and oriented x3. LABORATORY: CBC is unremarkable. Blood sugars have runs as low at 59 and been as high as 323. Electrolytes otherwise are basically within normal limits. All other labs and films have been reviewed via the EMR. ASSESSMENT: 1. Altered mental status with hypoglycemia in a poorly controlled diabetic with a hemoglobin A1c of 12. 2. Hypertensive crisis. 3. Hypothyroidism with recent TSH of 40. 4. Urinary tract infection. 5. Poor medical compliance most likely due to mild dementia. 6. Diabetes mellitus, type 2. 7. Coronary artery disease. PLAN: We will continue present supportive. I have only decreased her long- acting insulin to 25 units nightly. She normally gets 40 units nightly. I am quite concerned she has a 59 blood sugar overnight. She is on sliding scale insulin protocol and not her typical Apidra 4 units before meals. We will check her blood sugars overnight. Hopefully she can be discharged in the morning if her blood sugars are stabilized. She does have a followup appointment with Dr. Guadalupe on Monday. At this point, I will not make any further adjustments to her blood sugar medications. Her blood pressure is somewhat stabilized and so I am going to have her thyroid labs checked in 4 to 6 weeks. Other than blood sugar checks, I will hold on any labs. Hopefully, she can be discharged tomorrow. We will continue to monitor her closely and follow as needed. #[id number] [facility]
[2019-05-20] MEDS: CLOPIDOGREL 75 MG TAB PO SCH (09:00)
[2019-05-20 10:14] VITALS: BP 137/56; TEMP 98.5
--- NOTE | 2019-05-21 08:17 | DS ---
SUPERVISING PHYSICIAN: Dilip Staples MD ADMISSION DIAGNOSIS: 1. Altered mental status with hypoglycemia in a poorly controlled diabetic with a hemoglobin A1c of 12. 2. Hypertensive crisis. 3. Hypothyroidism with recent TSH of 40. 4. Urinary tract infection. 5. Poor medical compliance most likely due to mild dementia. 6. Diabetes mellitus, type 2. 7. Coronary artery disease. DISCHARGE DIAGNOSIS: 1. Altered mental status, back to baseline levels, with previous hypoglycemic event in a poorly controlled diabetic with a hemoglobin A1c of 12 with the patient's mental status being stable. 2. Hypertensive crisis, resolved. 3. Hypothyroidism with recent TSH of 40. 4. Urinary tract infection showing a urogenital doc final culture results with the patient having been treated with Rocephin and asymptomatic. 5. Poor medical compliance most likely due to mild dementia. 6. Diabetes mellitus, type 2, poorly controlled with hemoglobin A1c of 12. 7. Coronary artery disease. REASON FOR HOSPITALIZATION: This a 78-year-old female patient who was sent to the Emergency Room today from her physician's office, Dr. Guadalupe. She had been feeling poorly over the last few days and actually had a workup several days ago where she had a TSH around 40. It was felt that she was poorly compliant with her medications and it was unknown how she was taking any of those, so Dr. Guadalupe had her return to the clinic today with her medications for clarification. Her son was bringing her to the office and she was somewhat lethargic as well as diaphoretic. They did stop on the way to the doctor's office and actually got some food. She was at her doctor's office and was somewhat lethargic. She had her blood sugar checked and even after eating, her blood sugar was in the 50s and she was sent to the Emergency Room. Her hemoglobin A1c at her physician's office was over 12. TSH was 40. Her son felt that she had actually taken her long-acting insulin and thought it was her short-acting insulin and felt that was the reason her blood sugars were quite low. In the Emergency Room, her initial vital signs showed temperature 95.1, heart rate 53, blood pressure 197/79. It went up as high as 205/65. Respiratory rate was 20, O2 saturation 99%. Her lab studies showed CBC unremarkable. Electrolytes were basically within normal limits with the exception of her potassium was low at 3.1. Blood sugar was 49 and then came up to 76. She received some D50 as well as placed on D10 IV fluids. Her cardiac enzymes were negative. She received some Lopressor IV and was given of her some routine medication. She also was found to have a urinary tract infection and she was started on Rocephin. The patient was admitted in stable condition. LABORATORY: CBC on admission and discharge was within normal limits with last one with white count 7,100, hemoglobin and hematocrit stable at 11.8 and 36.0 respectively with platelet count 231,000. Differential was without a left shift. Chemistries on admission showed potassium 3.1. Other electrolytes were within normal limits. BUN 21, creatinine 1.19. Initial glucose was 49 on admission. Blood sugars ranged between 49 and greater than 400, but were stable prior to discharge within 24 hours of discharge with lowest blood sugar reading at 81 up to 313. MICROBIOLOGY: Urine culture showed normal urogenital doc. RADIOLOGY: She did not have any radiographic studies while in the hospital. HOSPITAL COURSE: Ms. Ovalles was admitted for hypoglycemia and hypertensive crisis. Her blood sugars were stabilized with management of her Levemir and changing dosing from 40 units at bedtime to 25 units as well as continued Apidra. Blood pressures was stable. On discharge, her blood sugar was 81. DISCHARGE ASSESSMENT: VITAL SIGNS: Temperature 98.5, pulse 54, blood pressure 137/56, respirations 18, saturation 99% on room air. GENERAL: She was resting comfortably in no acute distress. CHEST: Clear to auscultation. HEART: Regular rate and rhythm. ABDOMEN: Soft, nontender. Positive bowel sounds. EXTREMITIES: No edema. NEUROLOGIC: Alert and oriented x3. The patient was found to be stable and after talking with the son, it was agreed the patient was stable clinically and improved well enough to continue with outpatient management to followup with Dr. Guadalupe the following Monday after discharge. PLAN: Ms. Ovalles was discharged on 05/20/2019 with instructions to followup with Dr. Guadalupe on Monday as scheduled. She was to resume her home medications as instructed with taking Levemir 25 units subcutaneously at bedtime and continue taking her Apidra as directed. She was instructed to eat a snack at night to ensure she does not have any more hypoglycemic events in the morning. She and her son were encouraged to keep a blood pressure log as well as blood sugars to take with them at followup to see Dr. Guadalupe. She was told to return to the hospital as needed. Diet on discharge was diabetic diet. Activity to increase as tolerated. She was discharged on home health through [facility]. MEDICATIONS AT DISCHARGE: 1. Levemir 25 units subcutaneously at bedtime. 2. Synthroid 0.175 mg, #30, no refills. All other medications as prior to hospitalization were continued. DISPOSITION: The patient was discharged home. CONDITION ON DISCHARGE: Stable and improved. #[id number] [facility]
== END 2019-05-20 14:35 | disposition home health service (06) | DRG 638 ==
LOC: ER 10:12 → MS 14:11 → OBSVTOIN 05-19 12:36
PROVIDERS: ADMIT Surgery; ATTEND Nurse Practitioner Family
DX: E11.649 Type 2 diabetes mellitus with hypoglycemia without coma (principal); I16.9 Hypertensive crisis, unspecified; N39.0 Urinary tract infection, site not specified; I10 Essential (primary) hypertension; E03.9 Hypothyroidism, unspecified; F03.90 Unspecified dementia, unspecified severity, without behavioral disturbance, psychotic disturbance, mood disturbance, and anxiety; I25.10 Atherosclerotic heart disease of native coronary artery without angina pectoris; E87.6 Hypokalemia; E78.5 Hyperlipidemia, unspecified; M19.90 Unspecified osteoarthritis, unspecified site; I25.2 Old myocardial infarction; Z96.651 Presence of right artificial knee joint; Z91.14 Patient's other noncompliance with medication regimen; Z98.61 Coronary angioplasty status; Z79.4 Long term (current) use of insulin; Z79.899 Other long term (current) drug therapy

== ENCOUNTER → 2019-06-21 | Outpatient (CLI) | payer OTHER | LOC: GMAJ 10:43 | PROVIDERS: ATTEND Family Medicine | DX: E03.9 Hypothyroidism, unspecified (principal) ==

== ENCOUNTER → 2019-09-10 | Outpatient (CLI) | payer OTHER | LOC: YCHH 09:52 | PROVIDERS: ATTEND Family Medicine | DX: E03.9 Hypothyroidism, unspecified (principal) ==

== ENCOUNTER → 2019-10-25 | Outpatient (CLI) | payer OTHER | LOC: YCHH 15:13 | PROVIDERS: ATTEND Family Medicine | DX: E03.9 Hypothyroidism, unspecified (principal) ==

== ENCOUNTER → 2019-11-26 | Outpatient (CLI) | payer OTHER | LOC: YCHH 10:34 | PROVIDERS: ATTEND Family Medicine | DX: E03.9 Hypothyroidism, unspecified (principal) ==

== ENCOUNTER → 2020-02-05 | Outpatient (CLI) | payer OTHER | LOC: GMAJ 16:34 | PROVIDERS: ATTEND Family Medicine | DX: R41.89 Other symptoms and signs involving cognitive functions and awareness (principal); R41.9 Unspecified symptoms and signs involving cognitive functions and awareness ==

== ENCOUNTER → 2020-02-11 | Outpatient (CLI) | payer OTHER ==
--- NOTE | 2020-02-12 12:51 | MRI ---
EXAM DESCRIPTION: Brain w/o Contrast: MRI. CLINICAL HISTORY: SYMPTOMS AND SIGNS INVOLVING COGNITIVE FUNCTIONS COMPARISON: None. TECHNIQUE: Multiplanar, high-field MRI unit, multiple diffusion sequences, multiple conventional sequences without contrast. FINDINGS: Bilateral small foci of hyperintense FLAIR and T2-weighted signal in the periventricular white matter and sub-cortical white matter , predominantly at the level of the ventricles and superiorly in the supraventricular bilateral lobes. Largest focal lesion is just superior to the right thalamus and also right centrum semiovale at the frontoparietal junction. Smaller lesion left thalamus. No hemorrhage, no cerebral edema, no midline shift.. Focal signal in the lateral and posterior left basal ganglia. No hemorrhage, no cerebral edema, no mass-effect focal hyperintense T2 and FLAIR signal signal in the left estelita abutting the midline. No hemorrhage, no cerebral edema, no mass-effect. Remainder of the brain stem in the cerebellar hemispheres with no hemorrhage, no mass effect, no herniation/midline shift. Concordance of the diffusion and non-diffusion sequences with no diffusion restriction. Cortical sulci, ventricles, and other CSF spaces, and the subdural spaces are demonstrating cortical atrophy in the cerebrum and cerebellum. Small diverticulum, or subependymoma cyst on the left side of the third ventricle, same signal intensity as CSF. Minimal prominence of the ventricular system. No effacement or displacement. No midline shift. No extra-axial hemorrhage. Normal flow signal void in the major vessels of the samish French, and the venous sinuses. IACs are symmetric bilaterally. Right vertebral artery is dominant over the left. Normal signal in the bilateral mastoid air cells. No mass effect in the bilateral cerebellopontine angles. Pituitary gland occupies less than half of the sella. Base of the cerebellar tonsils is above the foramen magnum. Minimal mucoperiosteal thickening in the bilateral paranasal sinuses.. The bony calvarium is intact. IMPRESSION: 1. Subcortical and periventricular white matter lesions are most likely related to cerebral microvascular disease and aging. No hemorrhage, no mass effect, no midline shift. No diffusion restriction in these lesions or elsewhere. Similar appearing lesion in the left side of the estelita. 2. No extra-axial hemorrhage, mass effect, or fluid collection. Minimal atrophy of the cerebrum and cerebellum. Minimal prominence of the ventricular system. Chronic sinusitis. Electronically signed by: Christophe Lozano MD 02/12/2020 12:49 PM CDT
== END ==
LOC: MRI 10:04
PROVIDERS: ATTEND Family Medicine
DX: R90.82 White matter disease, unspecified (principal); J32.9 Chronic sinusitis, unspecified; G31.9 Degenerative disease of nervous system, unspecified; G93.89 Other specified disorders of brain

== ENCOUNTER → 2020-04-28 | Outpatient (CLI) | payer MEDICARE, OTHER | LOC: YCHH 11:09 | PROVIDERS: ATTEND Family Medicine | DX: R74.8 Abnormal levels of other serum enzymes (principal); E11.40 Type 2 diabetes mellitus with diabetic neuropathy, unspecified; E03.9 Hypothyroidism, unspecified; R80.9 Proteinuria, unspecified; D64.9 Anemia, unspecified; E78.5 Hyperlipidemia, unspecified; R79.89 Other specified abnormal findings of blood chemistry ==